=== PATIENT | male | born 1975 | race Caucasian/White ===

== ENCOUNTER 2018-11-12 18:28 | Emergency (ER) | payer MEDICAID, SELFPAY ==
[2018-11-12 18:32] VITALS: BP 148/84; PULSE 66; RESP 16; TEMP 36.7; O2SAT 98
[2018-11-12] MEDS: Tetracaine 0.5% 4 ML BTL OP (18:49)
[2018-11-12] MEDS: Balanced Salt Solution 15 ML BTL OP (18:50)
[2018-11-12] MEDS: Erythromycin Ophth Oint 3.5 GM TUBE OP (18:50)
[2018-11-12] MEDS: Fluorescein STRIPS 100/BOX OP (18:57)
--- NOTE | 2018-11-12 19:30 | ED.GENADUL_ITS ---
Discharge Plan Disposition Patient Disposition: HOME Condition: Stable Discharge Details Chief Complaint: EyeProblem Clinical Impression: Acute foreign body of right eye, Corneal rust ring of right eye Primary Care Provider: Heather Schneider ED Provider: Luis Mauro Home Meds and New Rx's Prescriptions: No Action No Known Home Meds RF: 0 Discharge Instructions Instructions: Eye Foreign Body (ED) Additional Instructions: Use the provided antibiotic ointment 4 times daily and apply half inch to right eye each time. You should present to [facility] at 9 AM on Thursday for follow-up assessment to the rust ring seen after removal of foreign body Referrals: [facility] [Outside] - 11/15/18 9:00 am Discharge Data Discharge Date/Time-TO BE ENTERED AT DEPARTURE: 11/12/18 20:20 Medical Decision Making Approximately 30 minutes prior to arrival patient was under a car and felt a piece of metal/rest fall into his eye while cleaning up his tools. Patient states that is located on his right medial eye. Visual examination of the eyes shows injection to the medial aspect of the right eye and a single visible metallic foreign body. Tetracaine was instilled into the eye and attempted to remove initially with moistened Q-tip was unable and so utilize 18-gauge needle to remove foreign body. Foreign body was able to be removed and eye was stained with dye and shows uptake around the area and a persistent rust ring otherwise no other findings were noted. Patient was up-to-date on tetanus. Patient placed up on erythromycin ointment. Did speak with Dr. Owens at [facility] where patient is normally seen and he stated that patient could come by the office in 3 days for follow-up reassessment of rust ring and any procedure as needed. After discussion of diagnosis and plan of care patient has no further needs, questions, or concerns and states clear understanding to return to the emergency department for any worsening symptoms. HPI General Mode of arrival: ambulatory . Date/Time Provider Initiated Documentation: 11/12/18 18:40 . Limitations to Documentation: no limitations . Information obtained by: patient and RN notes reviewed . History of Present Illness 43 year old M presents to the emergency department with the chief complaint of Foreign body right eye, described as moderate, with intensity rated at 7. Quality is described as sharp, and is localized to the eyes and right. Patient reports no radiation. Patient started experiencing this minute(s) (30) and it has been constant. No relieving factors improve symptom(s), No exacerbating factors reported . Patient notes no other symptoms.. Patient did receive the following treatments prior to arrival, none Related Data Home Medications Medication Instructions Recorded Confirmed Unknown [No Known Home Meds] 01/19/15 11/12/18 Allergies Allergy/AdvReac Type Severity Reaction Status Date / Time No Known Allergies Allergy Unverified 11/12/18 18:36 General Stated Complaint: EyeProblem BETHANY: 4 Review of Systems Constitutional Denies body ache(s), Denies chills and Denies fever(s) Eyes Reports as per HPI, Denies blind spots, Reports blurry vision, Reports irritation, Denies loss of vision and Reports eye pain Integumentary/Breasts Denies rash Neurologic Denies confusion, Denies loss of vision and Denies sensory deficit Psychiatric Denies confusion [facility] Social History Smoking/Tobacco Use Status: Current every day Exam Const General: cooperative, no acute distress and not ill appearing Orientation: alert, awake and oriented x3 HENMT Mouth: moist mucous membranes Eyes Visual Richards: normal visual richards by confrontation Alignment and Position: alignment normal Periorbital: periorbital findings normal Eyelids: eyelids normal Conjunctivae: conjunctivae normal Sclera: scleral abnormality right scleral injection medial Cornea: corneas abnormal on the right fluorescein used and foreign body metallic and with rust ring present and fluorescein used Pupils: PERRL, normal by confrontation and accommodation normal EOM: EOM intact bilaterally Resp Effort & Inspection: normal respiratory effort, able to speak in complete sentences and no respiratory distress Cardio Rate: regular rate Rhythm: regular rhythm Skin General skin exam: no rashes or lesions noted Neuro General: alert, awake, oriented x3, moves all extremities and no focal motor deficits Sensory Exam: no sensory deficits noted Course Vital Signs Temperature 36.7 C 11/12/18 18:32 Pulse 66 11/12/18 18:32 Respiratory Rate 16 11/12/18 18:32 Blood Pressure 148/84 H 11/12/18 18:32 Pulse Oximetry 98 11/12/18 18:32 Temperature 36.7 C 11/12/18 18:32 Temperature Source Temporal Artery Scan 11/12/18 18:32 Pulse 66 11/12/18 18:32 Respiratory Rate 16 11/12/18 18:32 Respiratory Effort Non-Labored 11/12/18 18:35 Blood Pressure 148/84 H 11/12/18 18:32 Blood Pressure Position Sitting 11/12/18 18:32 Pulse Oximetry 98 11/12/18 18:32 Oxygen Delivery Method Room Air 11/12/18 18:32 Oxygen Flow Rate 0 11/12/18 18:32
== END 2018-11-12 20:20 | disposition home or self-care (01) ==
PROVIDERS: Emergency Provider Nurse Practitioner Family; PCP Nurse Practitioner Family
DX: T15.01XA Foreign body in cornea, right eye, initial encounter (principal); Y99.0 Civilian activity done for income or pay
CPT/HCPCS: 65220

== ENCOUNTER 2019-02-08 02:26 | Emergency (ER) | payer MEDICAID, SELFPAY ==
[2019-02-08 02:27] VITALS: BP 150/75; PULSE 88; RESP 16; TEMP 36.6; O2SAT 97
--- NOTE | 2019-02-08 02:30 | W.ED.GENAD ---
Discharge Plan Disposition Patient Disposition: HOME Condition: Stable Discharge Details Chief Complaint: EyeProblem Clinical Impression: Corneal abrasion Primary Care Provider: Heather Schneider ED Provider: Bertrand Ayala Home Meds and New Rx's Prescriptions: No Action No Known Home Meds RF: 0 Discharge Instructions Instructions: Corneal Abrasion (ED) Additional Instructions: you can take 1000mg tylenol and 600mg ibuprofen every 6 hours for pain as needed if you are still in pain in 2-3 days follow up with [facility], call them at [phone] if you feel your pain is significantly worsening or you have vision changes return to the emergency department use the ointment in the left eye 3 times a day for 5 days or until the tube is gone Medical Decision Making 43 yo male states he was working under a car yesterday afternoon and put safety goggles on and felt something go in his left eye. Has had pain since so came here. Denies vision changes or deep eye pain, perrl and eomi without pain on movement, no periorbital swelling. Has injected left conjuncitva, no FB on eyelid eversion and pain resolved with tetracaine. no findings to suggest globe rupture, at the 12 olock position on the conjunctiva there is a 1mm corneal abrasion. Will start abx ointment and advised if not better in a few days to f/u with optometry, return precautions given. IOP 10 so doubt glaucoma Differential Diagnosis corneal abrasion, conjunctivitis, FB HPI General Mode of arrival: ambulatory. Date/Time Provider Initiated Documentation: 02/08/19 02:30. Limitations to Documentation: no limitations. Information obtained by: patient. History of Present Illness 43 year old M presents to the emergency department with the chief complaint of left eye pain, described as moderate, and is localized to the eyes. Patient reports no radiation. Patient started experiencing this day(s) (1) and it has been constant. No relieving factors improve symptom(s), No exacerbating factors reported . Patient notes no other symptoms.. Patient did receive the following treatments prior to arrival, none Related Data Home Medications Medication Instructions Recorded Confirmed Unknown [No Known Home Meds] 01/19/15 02/08/19 Allergies Allergy/AdvReac Type Severity Reaction Status Date / Time No Known Allergies Allergy Unverified 02/08/19 02:30 General Stated Complaint: EyeProblem BETHANY: 4 Review of Systems Review of Systems All systems reviewed & are unremarkable except as noted in HPI and below Constitutional Denies chills and Denies fever(s) Cardiovascular Denies chest pain and Denies dyspnea Respiratory Denies cough and Denies dyspnea Gastrointestinal Denies abdominal pain, Denies nausea and Denies vomiting Integumentary/Breasts Denies rash PFSH Medical History Cyst (Acute) Social History Smoking/Tobacco Use Status: Current every day Tobacco Type: cigarettes Alcohol Intake: never Drug use: Never Substance use type: does not use Do you feel safe at home: Yes Do you feel safe in your relationship?: Yes Exam Const General: no acute distress Orientation: alert HENMT Head: normal to inspection Ears: external ears normal General nose exam: external nose normal Mouth: moist mucous membranes Eyes Pupils: PERRL Neck Neck: normal visual inspection Resp Effort & Inspection: normal respiratory effort and able to speak in complete sentences Cardio Rate: regular rate Skin General skin exam: no rashes or lesions noted Neuro General: alert and oriented x3 Extrem General: normal to inspection Psych Mental Status: mental status grossly normal Course Vital Signs Temperature 36.6 C 02/08/19 02:27 Pulse 88 02/08/19 02:27 Respiratory Rate 16 02/08/19 02:27 Blood Pressure 150/75 H 02/08/19 02:27 Pulse Oximetry 97 02/08/19 02:27 Temperature 36.6 C 02/08/19 02:27 Temperature Source Skin 02/08/19 02:27 Pulse 88 02/08/19 02:27 Respiratory Rate 16 02/08/19 02:27 Blood Pressure 150/75 H 02/08/19 02:27 Blood Pressure Position Sitting 02/08/19 02:27 Pulse Oximetry 97 02/08/19 02:27 Oxygen Delivery Method Room Air 02/08/19 02:27 Oxygen Flow Rate 0 02/08/19 02:27 Pain Level 6 02/08/19 02:27
--- NOTE | 2019-02-08 02:34 | ED.GENADUL_ITS ---
Discharge Plan Disposition Patient Disposition: HOME Condition: Stable Discharge Details Chief Complaint: EyeProblem Clinical Impression: Corneal abrasion Primary Care Provider: Heather Schneider ED Provider: Bertrand Ayala Home Meds and New Rx's Prescriptions: No Action No Known Home Meds RF: 0 Discharge Instructions Instructions: Corneal Abrasion (ED) Additional Instructions: you can take 1000mg tylenol and 600mg ibuprofen every 6 hours for pain as needed if you are still in pain in 2-3 days follow up with [facility], call them at [phone] if you feel your pain is significantly worsening or you have vision changes return to the emergency department use the ointment in the left eye 3 times a day for 5 days or until the tube is gone Medical Decision Making 43 yo male states he was working under a car yesterday afternoon and put safety goggles on and felt something go in his left eye. Has had pain since so came here. Denies vision changes or deep eye pain, perrl and eomi without pain on movement, no periorbital swelling. Has injected left conjuncitva, no FB on eyelid eversion and pain resolved with tetracaine. no findings to suggest globe rupture, at the 12 olock position on the conjunctiva there is a 1mm corneal abrasion. Will start abx ointment and advised if not better in a few days to f/u with optometry, return precautions given. IOP 10 so doubt glaucoma Differential Diagnosis corneal abrasion, conjunctivitis, FB HPI General Mode of arrival: ambulatory . Date/Time Provider Initiated Documentation: 02/08/19 02:30 . Limitations to Documentation: no limitations . Information obtained by: patient . History of Present Illness 43 year old M presents to the emergency department with the chief complaint of left eye pain, described as moderate, and is localized to the eyes. Patient reports no radiation. Patient started experiencing this day(s) (1) and it has been constant. No relieving factors improve symptom(s), No exacerbating factors reported . Patient notes no other symptoms.. Patient did receive the following treatments prior to arrival, none Related Data Home Medications Medication Instructions Recorded Confirmed Unknown [No Known Home Meds] 01/19/15 02/08/19 Allergies Allergy/AdvReac Type Severity Reaction Status Date / Time No Known Allergies Allergy Unverified 02/08/19 02:30 General Stated Complaint: EyeProblem BETHANY: 4 Review of Systems Review of Systems All systems reviewed & are unremarkable except as noted in HPI and below Constitutional Denies chills and Denies fever(s) Cardiovascular Denies chest pain and Denies dyspnea Respiratory Denies cough and Denies dyspnea Gastrointestinal Denies abdominal pain, Denies nausea and Denies vomiting Integumentary/Breasts Denies rash PFSH Medical History Cyst (Acute) Social History Smoking/Tobacco Use Status: Current every day Tobacco Type: cigarettes Alcohol Intake: never Drug use: Never Substance use type: does not use Do you feel safe at home: Yes Do you feel safe in your relationship?: Yes Exam Const General: no acute distress Orientation: alert HENMT Head: normal to inspection Ears: external ears normal General nose exam: external nose normal Mouth: moist mucous membranes Eyes Pupils: PERRL Neck Neck: normal visual inspection Resp Effort & Inspection: normal respiratory effort and able to speak in complete sentences Cardio Rate: regular rate Skin General skin exam: no rashes or lesions noted Neuro General: alert and oriented x3 Extrem General: normal to inspection Psych Mental Status: mental status grossly normal Course Vital Signs Temperature 36.6 C 02/08/19 02:27 Pulse 88 02/08/19 02:27 Respiratory Rate 16 02/08/19 02:27 Blood Pressure 150/75 H 02/08/19 02:27 Pulse Oximetry 97 02/08/19 02:27 Temperature 36.6 C 02/08/19 02:27 Temperature Source Skin 02/08/19 02:27 Pulse 88 02/08/19 02:27 Respiratory Rate 16 02/08/19 02:27 Blood Pressure 150/75 H 02/08/19 02:27 Blood Pressure Position Sitting 02/08/19 02:27 Pulse Oximetry 97 02/08/19 02:27 Oxygen Delivery Method Room Air 02/08/19 02:27 Oxygen Flow Rate 0 02/08/19 02:27 Pain Level 6 02/08/19 02:27
[2019-02-08] MEDS: Erythromycin Ophth Oint 3.5 GM TUBE OP (02:42)
[2019-02-08] MEDS: Balanced Salt Solution 15 ML BTL (02:43)
[2019-02-08] MEDS: Tetracaine 0.5% 4 ML BTL (02:43)
[2019-02-08] MEDS: Fluorescein STRIPS 100/BOX 1 MG (02:44)
== END 2019-02-08 02:45 | disposition home or self-care (01) ==
LOC: ER 02:47
PROVIDERS: Emergency Provider Emergency Medicine; PCP Nurse Practitioner Family
DX: S05.02XA Injury of conjunctiva and corneal abrasion without foreign body, left eye, initial encounter (principal); X58.XXXA Exposure to other specified factors, initial encounter
CPT/HCPCS: 99283

== ENCOUNTER 2019-12-01 16:55 | Outpatient (REF) | payer MEDICAID, SELFPAY ==
[2019-12-01 21:50] LABS: Abs Immature Grans 0.02 k/cumm (0.0-0.09); Absolute Basophil Count 0.06 k/cumm (0.0-0.2); Absolute Eosinophil Count 0.25 k/cumm (0.0-0.7); Absolute Lymphocyte Count 3.05 k/cumm (1.2-3.4); Absolute Monocyte Count 0.74 k/cumm (0.11-0.7); Absolute Neutrophil Count 5.77 k/cumm (1.2-6.7); Basophils % 0.6; Eosinophils % 2.5; HCT 41.3 % (40.0-50.0); HGB 13.8 g/dL (13.5-17.5); Immature Grans % 0.2 %; Lymphocytes % 30.8; Mean Corp. HGB Concentration 33.4 g/dL (32.0-36.0); Mean Corpuscular Hemoglobin 31.7 pg (27.0-33.0); Mean Corpuscular Volume 94.7 fL (80-95); Mean Platelet Volume 10.2 fL (8.0-11.0); Monocytes % 7.5; Neutrophils % 58.4; Platelet Count 310 x1000/uL (130-400); RBC 4.36 m/cumm (4.50-6.00); RBC Distribution Width 13.8 % (11.8-14.1); White Blood Cell Count 9.89 k/cumm (4.4-10.8)
[2019-12-01 22:13] LABS: C-Reactive Protein 0.54 mg/dL (0.0-0.3); TSH (W/Ref FT4) 1.17 uIU/mL (0.36-3.74)
[2019-12-01 22:39] LABS: ESR 16 mm/hr (0-15)
[2019-12-05 11:13] LABS: Cyclic Citrullinated Peptide <2.5 U/mL (<5.0)
[2019-12-05 15:01] LABS: ANA Interpretation Negative (Negative)
== END 2019-12-01 17:15 ==
LOC: NCHCN 16:55
PROVIDERS: PCP Nurse Practitioner Family; Visit Provider Nurse Practitioner Family
DX: M25.50 Pain in unspecified joint (principal)
CPT/HCPCS: 85652; 86200; 84443; 85025; 86038; 86140

== ENCOUNTER 2022-01-08 14:51 | Outpatient (CLI) | payer MEDICAID, SELFPAY ==
--- NOTE | 2022-01-08 15:53 | DI.RAD_ITS ---
Exam(s) XR CHEST 2V PA LATERAL EXAM: XR CHEST 2V PA LATERAL CLINICAL HISTORY: DYSPNEA R06.00 TECHNIQUE: 2D digital imaging was performed of the chest. Images were obtained. PA and lateral v iews were obtained. COMPARISON: CR CHEST 2 VIEWS PA,LAT from 03/09/2013 FINDINGS: MEDIASTINUM: Normal. HEART: Normal. PULMONARY VASCULATURE: Normal. LUNGS: There is a pleural-based 5.3 x 3.8 cm mass in the right upper lobe. There is a 2nd mass measu ring 3.1 x 1.3 cm along the right lateral chest wall. The right paratracheal space is enlarged sugge sting adenopathy or central mass. Linear atelectasis or scarring is seen in the right lower lobe. T he left lung is clear. PLEURAL SPACE: No pleural effusion or pneumothorax. BONE:Within normal limits for the patient's age. OTHER FINDINGS:Normal. IMPRESSION: Pulmonary and mediastinal masses suspicious for neoplasm and adenopathy. A CT scan of the chest with contrast is recommended for further evaluation. DATA REPOSITORY: RADIATION DOSE DELIVERED:
== END 2022-01-08 15:11 ==
PROVIDERS: PCP Nurse Practitioner Family; Visit Provider Physician Assistant Medical
DX: R06.00 Dyspnea, unspecified (principal); R91.8 Other nonspecific abnormal finding of lung field
CPT/HCPCS: 71046

== ENCOUNTER 2022-01-08 16:08 | Outpatient (CLI) | payer MEDICAID, SELFPAY ==
[2022-01-08 16:45] LABS: D-Dimer 840 ng/mlFEU (<500)
== END 2022-01-08 16:09 | disposition home or self-care (01) ==
LOC: LBO 16:09
PROVIDERS: PCP Nurse Practitioner Family; Visit Provider Physician Assistant Medical
DX: R06.00 Dyspnea, unspecified (principal)
CPT/HCPCS: 85379

== ENCOUNTER 2022-01-08 22:43 | Observation (INO) | payer MEDICAID, SELFPAY ==
--- NOTE | 2022-01-08 22:45 | RT.EKG_ITS ---
APPROVED REPORT Exam: Resting ECG Reason for Exam: short of breath Patient Location: E HR:83 bpm ECG Measurements Heart Rate 83 AXIS NM 166 P 64 QRSd 93 QRS 31 QT 372 T 55 QTc 438 Conclusion Sinus rhythm...normal P axis, V-rate 60- 99 I have reviewed and interpreted ECG and agree with software generated interpretation. Normal Electrocardiogram
[2022-01-08 22:50] VITALS: BP 142/89; PULSE 89; RESP 18; TEMP 36.3; O2SAT 98
--- NOTE | 2022-01-08 23:00 | DI.CT_ITS ---
Exam(s) CT CHEST PE CTA EXAM: CT CHEST PE CTA CLINICAL HISTORY: CP, covid last month, Elevated dimer. TECHNIQUE: Imaging Protocol: Axial CT angiography was performed with multi-slice acquisition and mu lti-planar and/or 3D reconstructions. CONTRAST MATERIAL: Intravenous: Omnipaque 350 Contrast volume:100 mL COMPARISON: CR XR CHEST 2V PA LATERAL from 01/08/2022 FINDINGS: Tracheobronchial tree: Patent where visualized. Pulmonary parenchyma: There is a peripheral right upper lobe mass measuring 7.9 x 5.1 x 5.1 cm. The mass abuts the chest wall and may extend into the soft tissues. There are additional pleural-based n odules. The largest is adjacent to the right 5th rib and measures 3.4 x 1.2 cm. There also pleural nodules associated with the right major fissure measuring up to 1.6 cm in diameter. Ground-glass opa cities are present adjacent to the right upper lobe mass. There also mild dependent atelectatic maier ges in the lung bases. Scarring, atelectasis or pneumonia is seen in the right lung base. Pulmonary Arteries: The peripheral pulmonary arteries are less well opacified limiting evaluation for pulmonary embolic disease in this region. No central pulmonary embolus is seen. Mediastinum and Emilie: There is mediastinal and hilar adenopathy present. The largest delores masses in the right paratracheal region and measures 3.6 transverse by 5.4 AP by 5.6 craniocaudad. There is c ompression of the superior vena cava by the mediastinal adenopathy. The esophagus is unremarkable. Visualized thyroid gland: Unremarkable. Pleura: Please see above. No effusion. Heart: The heart is not dilated. No coronary artery calcifications are seen. No pericardial effusion. Aorta: Thoracic aorta non-dilated. No evidence of dissection. Tubes, Catheters, and Lines: Soft tissues: Unremarkable. Bones: Within normal limits for the patient's age.There is thinning of the cortex/erosion on the inne r surface of the right 2nd rib adjacent to the mass. IMPRESSION: 1. No evidence of pulmonary embolism, thoracic aortic dissection or aneurysm. 2. Right upper lobe mass with findings suggestive of involvement of the adjacent rib and chest wall. The findings are suggestive of advanced stage lung carcinoma. 3. Pleural metastatic disease and mediastinal adenopathy. 4. Compression of the superior vena cava by the mediastinal adenopathy. RADIATION DOSE DELIVERED: 373.65mGy.cm Total DLP DATA REPOSITORY: All CT scans at this facility are submitted to the National Radiology Data Registry (NRDR) Dose Index Registry (DIR) with the [employer] [place] [employer] ([employer]). RADIATION OPTIMIZATION: All CT scans at this facility use at least one of these dose optimization te chniques: automated exposure control; mA and/or kV adjustment per patient size (includes targeted exa ms where dose is matched to clinical indication); or iterative reconstruction.
--- NOTE | 2022-01-08 23:02 | ED.GENADUL_ITS ---
Discharge Plan Disposition Patient Disposition: [facility] INPATIENT Condition: Fair Discharge Details Clinical Impression: Mass of upper lobe of right lung, Mediastinal lymphadenopathy, Occlusion of right subclavian vein Primary Care Provider: Heather Schneider ED Provider: Ang House Home Meds and New Rx's Prescriptions: No Action No Known Home Meds 0RF Medical Decision Making <PRATEEK Mejía - Last Filed: 01/08/22 23:30> This is a 46-year-old gentleman, not vaccinated for COVID, had Covid in October, presenting from the urgent care for concern of PE. She went to the urgent care today for right-sided chest pain that been present for the past couple of week, was noted to have elevated D-dimer. Clinically he appears well, nontoxic, pulse in the 80s, afebrile, O2 sat 98% on room air. There is no pain or swelling in his legs. Will obtain routine laboratory values, given the duration of his symptoms I will obtain a single troponin, once I assess his renal function, assuming this is normal, will obtain CTA of his chest. Patient is comfortable with this plan and has no additional questions or concerns Medical Records Medical records reviewed: Yes I reviewed the patient's medical records. ECG Data Attestation: I personally reviewed and interpreted this ECG (s) as follows: Interpretation: Please see official report by Dr. House. Sinus rhythm, ventricular rate of 83. No STEMI <Ang House MD - Last Filed: 01/09/22 03:13> This is a 46-year-old gentleman, not vaccinated for COVID, had Covid in October, presenting from the urgent care for concern of PE. She went to urgent care today for right-sided chest pain that been present for the past couple of week, was noted to have elevated D-dimer. Clinically he appears well, nontoxic, pulse in the 80s, afebrile, O2 sat 98% on room air. There is no pain or swelling in his legs. Will obtain routine laboratory values, given the duration of his symptoms I will obtain a single troponin, once I assess his renal function, assuming this is normal, will obtain CTA of his chest. Patient is comfortable with this plan and has no additional questions or concerns 01:20 - Patient signed out to me pending CTA of the chest. He had presented to urgent care earlier today because of right upper chest pain. He was referred to the ED because of elevated D-dimer. Patient's other laboratory studies here are unremarkable other than a mild anemia. CTA is negative for PE or dissection. Unfortunately, there is evidence of advanced/metastatic lung cancer with erosion into the chest wall, significant adenopathy and occlusion of the right subclavian vein with significant collateralization in the chest wall. There is also compression of the SVC but no occlusion at this time. I sat down and had a discussion with the patient. He reports having pain for couple of months. He had COVID in October but did not have a chest x-ray. He tested positive and isolated at home. He actually had chest x-ray done from urgent care today. That report is present in the record now but likely would not have been acted on until tomorrow by the urgent care practitioner. 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 He is having more and more difficulty using the right upper extremity because of pain. He is not endorsing shortness of breath. I will have the images sent to [facility] and will discuss with heme-onc kvng. 3 AM - I spoke with heme/onc at [facility]. Really need tissue diagnosis to help guide management. Given vascular involvement this should be done as soon as possible. Also recommends staging abd/pelvic CT and LDH. These were ordered. Discussed with hospitalist obs admit to help expedite work up/biopsy. Might be possible for surgery to get biopsy based on chest wall involvement/lymph node involvement. Dr. Wagner might be able to bronch for biopsy. Can also consider down and back trip to [facility] interventional radiology as last resort. Patient is agreeable to plan and understands why procedure is necessary and should be done expeditiously. Patient accepted to hospitalist service. Imaging Data Radiologic Study: Imaging: CT Scan Radiologist's impression: IMPRESSION: 1. Negative for pulmonary embolism. 2. Negative for aortic dissection. 3. Right upper lobe mass with chest wall invasion. Advanced stage lung cancer suspected. Biopsy and PET-CT are advised. 4. Right pleural metastases. 5. Mediastinal lymphadenopathy. 6. Short segment occlusion the right subclavian vein. This is likely related to compression between the right clavicle and 1st rib, unrelated to the adjacent tumor. 7. Compression of the superior vena cava by mediastinal lymphadenopathy, without occlusion. Thank you for allowing us to participate in the care of your patient. Dictated and Authenticated by: Bertrand Chaudhry MD Lab Data Lab results reviewed: Yes I reviewed the patient's lab results. ECG Data Prior ECG tracings: not available for review HPI <PRATEEK Mejía - Last Filed: 01/08/22 23:30> General Mode of arrival: ambulatory . Date/Time Provider Initiated Documentation: 01/08/22 22:46 . Limitations to Documentation: no limitations . Information obtained by: patient . HPI Narrative: This is a 46-year-old gentleman, current smoker, not vaccinated for COVID, reports having had Covid back in October, presenting to the ER today from urgent care for evaluation of right-sided chest pain, shortness of breath, elevated D-dimer concern for PE. Patient states that he has had right-sided chest aching worse with movement, taking a deep breath, that occasionally radiates to his back, which is not present for the past couple of weeks. He reports mild, dry, baseline cough. He denies recent illness or trauma, headache, fever, productive cough, wheezing, abdominal pain, nausea, vomiting, history of DVT or PE, pain or swelling in his calf Related Data Home Medications Medication Instructions Recorded Confirmed Unknown [No Known Home Meds] 01/19/15 02/08/19 Allergies Allergy/AdvReac Type Severity Reaction Status Date / Time No Known Allergies Allergy Unverified 02/08/19 02:30 General Stated Complaint: GenMedical BETHANY: 3 Review of Systems <PRATEEK Mejía - Last Filed: 01/08/22 23:30> Constitutional Constitutional: Denies fatigue, Denies fever(s) and Denies weakness ENT Ears, Nose, Mouth, and Throat: Denies neck pain Cardiovascular Cardiovascular: Reports chest pain and Reports dyspnea Respiratory Respiratory: Reports cough and Reports dyspnea Gastrointestinal Gastrointestinal: Denies abdominal pain, Denies nausea and Denies vomiting Musculoskeletal Musculoskeletal: Reports back pain, Denies neck pain, Denies numbness and Denies tingling Integumentary/Breasts Skin/Breast: Denies rash Neurologic Neurologic: Denies numbness, Denies tingling and Denies weakness Endocrine Endocrine: Denies fatigue Hematologic/Lymphatic Hematologic/Lymphatic: Denies easy bleeding and Denies easy bruising PFS <PRATEEK Mejía - Last Filed: 01/08/22 23:30> All Active Problems (Updated 01/09/22 @ 03:12 by Ang House MD) Mass of upper lobe of right lung (Acute) Mediastinal lymphadenopathy (Acute) Occlusion of right subclavian vein (Acute) Medical History (Updated 01/09/22 @ 03:12 by Ang House MD) Cyst removed in throat as child Social History Smoking/Tobacco Use Status: Current every day Tobacco Type: cigarettes Smoking risk assessment performed?: Yes Alcohol Intake: never Drug use: Never Substance use type: does not use Do you feel safe at home: Yes Do you feel safe in your relationship?: Yes Exam <PRATEEK Mejía - Last Filed: 01/08/22 23:30> Const General: cooperative, healthy appearing, comfortable and no acute distress Orientation: alert, awake and oriented x3 HENMT Head: normal to inspection, normocephalic and atraumatic Eyes General: appearance normal, both eyes and all related structures Conjunctivae: conjunctivae normal Neck Neck: normal visual inspection, trachea midline and supple Resp Effort & Inspection: normal respiratory effort and able to speak in complete sentences Auscultation: clear to auscultation bilaterally Cardio Rate: regular rate Rhythm: regular rhythm GI Palpation: soft and nontender Back/Spine/Pelvis Back: No back tenderness Skin General skin exam: no rashes or lesions noted Neuro General: patient alert, patient awake, moves all extremities and no focal motor deficits Cognition: normal cognition Speech: speech normal Gait: normal gait Sensory Exam: no sensory deficits noted Extrem General: normal to inspection, full ROM and capillary refill normal Psych Appearance: grossly normal Mental Status: mental status grossly normal Course <PRATEEK Mejía - Last Filed: 01/08/22 23:30> Vital Signs Vital signs: Vital Signs Temperature 36.3 C L 01/08/22 22:50 Pulse 89 01/08/22 22:50 Respiratory Rate 18 01/08/22 22:50 Blood Pressure 142/89 H 01/08/22 22:50 Pulse Oximetry 98 02/16/22 22:50 Temperature 36.3 C L 01/08/22 22:50 Temperature Source Tympanic 01/08/22 22:50 Pulse 89 01/08/22 22:50 Respiratory Rate 18 01/08/22 22:50 Respiratory Effort 01/08/22 22:55 Respiratory Depth Normal 01/08/22 22:55 Respiratory Pattern Normal 01/08/22 22:55 Blood Pressure 142/89 H 01/08/22 22:50 Blood Pressure Position Supine 01/08/22 22:50 Pulse Oximetry 98 01/08/22 22:50 Oxygen Delivery Method Room Air 01/08/22 22:50 Oxygen Flow Rate 0 01/08/22 22:50 Pain Level 0 01/08/22 22:50 Sign Out <PRATEEK Mejía - Last Filed: 01/08/22 23:30> Sign Out Data: Sign Out Comment: Patient is not vaccinated for COVID. Current smoker. He had COVID in October, reports right-sided chest pain-pressure over the past 2 weeks constantly. Elevated D-dimer at urgent care today. Sent to the ER for PE rule out Last updated by Nikita Moreau PA at 01/08/22 23:43
[2022-01-08 23:15] VITALS: PULSE 89; RESP 12; O2SAT 97
[2022-01-08 23:16] VITALS: BP 128/81; PULSE 92; PULSE 97; RESP 13; O2SAT 98
[2022-01-08 23:20] VITALS: PULSE 89; RESP 14; O2SAT 97
[2022-01-08 23:23] LABS: Abs Immature Grans 0.03 10^3/uL (0.0-0.06); Absolute Basophil Count 0.06 10^3/uL (0.0-0.2); Absolute Eosinophil Count 0.31 10^3/uL (0.0-0.7); Absolute Lymphocyte Count 2.87 10^3/uL (1.2-3.4); Absolute Neutrophil Count 6.09 10^3/uL (1.2-6.7); Basophils % 0.6; HCT 37.8 % (40.0-50.0); Immature Grans % 0.3; Lymphocytes % 27.7; MCH 30.5 pg (27.0-33.0); MCHC 31.7 % (32.0-36.0); MCV 95.9 fL (80-95); MPV 8.5 fL (8.0-11.0); Monocytes % 9.7; Neutrophils % 58.7; Nucleated RBC 0 %; Platelet Count 401 10^3/uL (130-400); RBC 3.94 10^6/uL (4.36-5.78); RDW 13.2 % (11.8-14.1); RDW-SD 47.2 fL; WBC 10.36 10^3/uL (4.4-10.8)
[2022-01-08 23:30] VITALS: PULSE 86; RESP 13; O2SAT 97
[2022-01-08 23:31] VITALS: BP 135/82; PULSE 83; PULSE 84; RESP 18; O2SAT 97
[2022-01-08 23:44] LABS: ALT 22 U/L (16-63); AST 17 U/L (15-37); Albumin 3.4 g/dL (3.4-5.0); Alkaline Phosphatase 125 U/L (46-116); Anion Gap 7.5 mmol/L (3-11); BUN 16 mg/dL (7-18); Bilirubin, Total 0.2 mg/dL (0.2-1.0); CO2 28.5 mmol/L (21.0-32.0); CREATININE 1.1 mg/dL (0.70-1.30); Calcium 9.1 mg/dL (8.5-10.1); Chloride 104 mmol/L (98-107); Glucose 104 mg/dL (74-106); Potassium 3.8 mmol/L (3.5-5.1); Sodium 140 mmol/L (136-145); Total Protein 8.2 g/dL (6.4-8.2); Troponin I < 50 ng/L (<or=60)
--- NOTE | 2022-01-09 | DI.US_ITS ---
Exam(s) US CHEST EXAM: US CHEST CLINICAL HISTORY: lung mass eroding into chest TECHNIQUE: Ultrasound right chest was performed performed using standard protocol. COMPARISON: CT CT CHEST PE CTA from 01/09/2022 FINDINGS: There is a hypoechoic mass seen in the right upper lobe measuring 5.8 cm[address] As on the CT scan, the mas s is inferior to the right axillary vessel. Dr. Castillo, from the department of surgery, was presen t during the examination. IMPRESSION: 5.8 cm right upper lobe pulmonary mass. DATA REPOSITORY:
[2022-01-09] MEDS: Omnipaque 350 MG/ML 100 ML BTL IV ×2 (00:18→03:13)
--- NOTE | 2022-01-09 00:51 | DI.VRAD_ITS ---
PROCEDURE INFORMATION: Exam: CTA Chest With Contrast Exam date and time: 01/08/2022 11:16 PM Age: 46 years old Clinical indication: Other: Cp, covid last month, elevated d-dimer TECHNIQUE: Imaging protocol: Computed tomographic angiography of the chest with contrast. 3D rendering (Not supervised by radiologist): MIP and/or 3D reconstructed images were created by the technologist. Radiation optimization: All CT scans at this facility use at least one of these dose optimization techniques: automated exposure control; mA and/or kV adjustment per patient size (includes targeted exams where dose is matched to clinical indication); or iterative reconstruction. Contrast material: OMNIPAQUE 350; Contrast volume: 100 ml; Contrast route: INTRAVENOUS (IV); COMPARISON: CR XR CHEST 2V PA LATERAL 01/08/2022 3:55 PM FINDINGS: Pulmonary arteries: Normal. No pulmonary emboli. Aorta: Unremarkable. No aortic aneurysm. No aortic dissection. Thyroid: Normal thyroid. Lungs: Right upper lobe mass measures 7.9 x 5.1 x 5.1 cm. Extension of the mass into the chest wall between the 1st and 2nd intercostal spaces is observed. Mild dependent ground-glass opacity noted in the lung bases, atelectasis and/or edema. Plate-like atelectasis and scarring is noted in the right lower lobe. Mild ground-glass opacity is present around the right upper lobe mass. There is no significant endobronchial mucus. No definite endobronchial mass observed. Pleural spaces: Focal sites of pleural thickening are noted in the right. A pleural based mass adjacent to the right 5th rib measures 3.4 x 1.2 cm. Additional pleural nodules are present arising from the right major fissure, up to 1.6 cm diameter. No significant pleural effusion. No pneumothorax. Negative for left-sided pleural masses. Heart: Negative for pericardial effusion. Negative for cardiomegaly. No significant coronary artery calcification. Lymph nodes: Enlarged mediastinal lymph nodes are noted. A right paratracheal mass measures 5.6 x 3.5 cm. Bilateral hilar and subcarinal lymph nodes are enlarged. Several enlarged anterior mediastinal lymph nodes are observed. A left internal mammary lymph node is enlarged, 1.5 cm, between the left 2nd and 3rd ribs anteriorly. No significant axillary lymphadenopathy. Adrenal glands: Normal adrenal glands. Bones/joints: Negative for compression fracture. No specific rib destruction or fracture is observed. Loss of cortex is observed in the right 2nd rib adjacent to the large mass. Sternum is intact. Soft tissues: Contrast injection in the right arm extends through multiple chest wall collaterals. Short-segment occlusion of the right subclavian vein is observed on coronal MIP image 37 series 5, position between the right clavicle and the 1st rib. The superior vena cava is collapsed, but not occluded. IMPRESSION: 1. Negative for pulmonary embolism. 2. Negative for aortic dissection. 3. Right upper lobe mass with chest wall invasion. Advanced stage lung cancer suspected. Biopsy and PET-CT are advised. 4. Right pleural metastases. 5. Mediastinal lymphadenopathy. 6. Short segment occlusion the right subclavian vein. This is likely related to compression between the right clavicle and 1st rib, unrelated to the adjacent tumor. 7. Compression of the superior vena cava by mediastinal lymphadenopathy, without occlusion. Dictated and Authenticated by: Bertrand Chaudhry MD. Ordering:NATY Shelton MD
--- NOTE | 2022-01-09 02:15 | DI.CT_ITS ---
Exam(s) CT ABDOMEN PELVIS W EXAM: CT ABDOMEN PELVIS W CLINICAL HISTORY: staging TECHNIQUE: Imaging Protocol: Axial computed tomography images with coronal and sagittal reformatted images were created and reviewed CONTRAST MATERIAL: Intravenous: Omnipaque 350 Contrast volume:100 mL Oral: No COMPARISON: CT CT CHEST PE CTA from 01/09/2022 FINDINGS: ABDOMEN: Liver: Normal density. No measurable mass. Portal, Superior Mesenteric, and Splenic Veins: Unremarkable. Gallbladder and Biliary Tract: No radiodense calculus or dilation. Pancreas: Normal density, no abnormal calcifications or inflammatory process. Spleen: Normal. Adrenals: No masses seen. Kidneys: Normal size, contour and axis. No radiodense stones or obstructive uropathy. No masses seen. Abdominal Aorta: Abdominal portion non-dilated. Atherosclerosis. Bowel: No obstruction or bowel wall thickening. No evidence of appendicitis. Peritoneal Cavity: No ascites, collection or mesenteric inflammatory response. No free air. Lymph Nodes: Within normal limits. Bones: Within normal limits for the patient's age. Soft Tissues: Unremarkable. PELVIS: Bladder: There is diffuse thickening of the wall of the urinary bladder. This may be due to underdis tention. Cystitis cannot be excluded. Reproductive Organs: Unremarkable as visualized. Lymph Nodes: Within normal limits. Bones: Within normal limits for the patient's age. IMPRESSION: No evidence of abdominal or pelvic mass or metastatic disease. RADIATION DOSE DELIVERED: 1,131.07mGy.cm Total DLP DATA REPOSITORY: All CT scans at this facility are submitted to the National Radiology Data Registry (NRDR) Dose Index Registry (DIR) with the [employer] (A[employer]). RADIATION OPTIMIZATION: All CT scans at this facility use at least one of these dose optimization te chniques: automated exposure control; mA and/or kV adjustment per patient size (includes targeted exa ms where dose is matched to clinical indication); or iterative reconstruction.
[2022-01-09 03:04] VITALS: BP 131/84; PULSE 81; RESP 16; O2SAT 100
[2022-01-09 03:12] LABS: Lab Add On Test DONE
[2022-01-09 03:26] LABS: LDH 235 U/L (85-227)
[2022-01-09 03:27] VITALS: BP 149/83; PULSE 78; RESP 17; TEMP 36.8; O2SAT 97
--- NOTE | 2022-01-09 03:43 | DI.VRAD_ITS ---
PROCEDURE INFORMATION: Exam: CT Abdomen And Pelvis With Contrast; Liver Exam date and time: 01/09/2022 2:20 AM Age: 46 years old Clinical indication: Other: Staging TECHNIQUE: Imaging protocol: Computed tomography of the abdomen and pelvis with intravenous contrast. Exam focused on the liver. Radiation optimization: All CT scans at this facility use at least one of these dose optimization techniques: automated exposure control; mA and/or kV adjustment per patient size (includes targeted exams where dose is matched to clinical indication); or iterative reconstruction. Contrast material: OMNIPAQUE 350; Contrast volume: 100 ml; Contrast route: INTRAVENOUS (IV); COMPARISON: CT CHEST PE CTA 01/09/2022 12:08 AM FINDINGS: Liver: Negative for suspicious mass. Homogeneous enhancement at arterial and venous phases. Gallbladder and bile ducts: Normal. No calcified stones. No ductal dilation. Pancreas: Normal. No ductal dilation. Spleen: Normal. No splenomegaly. Adrenals: Normal. No mass. Kidneys and ureters: Negative for hydronephrosis. Negative for renal mass. Contrast from the earlier exam is present in the collecting systems. Ureters are not dilated. Stomach and bowel: Stomach is collapsed and not well evaluated. Nondilated small bowel. Terminal ileum is unremarkable. Negative for inflammatory changes around the colon. Intraperitoneal space: Unremarkable. No free air. No significant fluid collection. Lymph nodes: Negative for suspicious peritoneal or inguinal lymphadenopathy. Vasculature: Negative for aneurysm. Mild vascular calcifications noted. Bladder: Collapsed urinary bladder, unremarkable. Reproductive: Unremarkable. Bones/joints: Negative for compression fracture. Moderate degenerative changes noted at L5-S1, with neural foraminal narrowing. Additional disc bulges noted L3-L4 and L4-L5. No destructive or erosive bony lesions observed. Soft tissues: Unremarkable. IMPRESSION: No evidence of metastatic disease inferior to the diaphragm. Dictated and Authenticated by: Bertrand Chaudhry MD. Ordering:AUGUSTINA Fry MD
[2022-01-09 03:49] LABS: COVID-19 PCR Negative (Negative)
[2022-01-09] MEDS: Acetaminophen 325 MG TAB PO ×2 (03:51→19:32)
--- NOTE | 2022-01-09 04:14 | W.PM.HP.N ---
Date of service: 01/09/22 Time of Service: 04:14 Assessment and Plan Assessment and plan (1) Mass of upper lobe of right lung: Status: Acute Assessment and plan: Lung mass eroding into the chest wall. Related lymphadenopathy compressing the SVC w/o SVC syndrome being evident. Tissue needed for diagnoses; most likely cancer. Bronchoscopy vs external approach by surgery given presence of the tumor eroding into the chest wall. Other option is IR at [facility] [place]. No pulmonary/environmental protection forester available today. Pain control with Toradol prn, oxycodone prn. (2) Occlusion of right subclavian vein: Status: Acute Assessment and plan: CT reading states the occlusion is a short segment occlusion the right subclavian vein and is likely related to compression between the right clavicle and 1st rib, unrelated to the adjacent tumor. He does have RUE discomfort but no swelling. (3) Tobacco abuse disorder: Status: Acute Assessment and plan: Nicoderm patch 21 mg prn. (4) Anemia: Status: Chronic Assessment and plan: Hgb of 12. Elevated MCV Check B12, folate, iron. No evidence noted on CT chest of any bleeding d/t the lung mass and the erosion of the mass into the chest wall. INR pending. Monitor. History of Present Illness History of Present Illness Chief Complaint: Right sided chest and back pain Narrative: This is a 46-year-old male, current smoker, not vaccinated for COVID (had Covid in October2021). He presented to the ER from urgent care for evaluation of right-sided chest pain and back pain, shortness of breath, elevated D-dimer concern for PE.? Patient stated that he has had right-sided chest aching worse with movement, taking a deep breath. Currently with more back than chest pain.He reports mild, dry, baseline cough particularly with a deep breath.? He also c/o pain/heaviness in the right upper arm. He denied trauma, headache, fever, productive cough, wheezing, abdominal pain, nausea, vomiting, history of DVT or PE, pain or swelling in his calf Initial BP 142/89. HR 80's. RR 13-18. RA O2 sat. upper 90's WBC count normal. Hgb 12. Platelets 401. INR pending. D dimer 840. Lytes normal. Creatinine 1.1. CTA chest. 1. Negative for pulmonary embolism. 2. Negative for aortic dissection. 3. Right upper lobe mass with chest wall invasion. Advanced stage lung cancer suspected. Biopsy and PET-CT are advised. 4. Right pleural metastases. 5. Mediastinal lymphadenopathy. 6. 7. Compression of the superior vena cava by mediastinal lymphadenopathy, without occlusion. ED physician spoke with Heme/Onc at [facility] [place]. They would like to urgently pursue obtaining tissue for diagnostics. Admitted for observation; pain control and formulate plan of approach to obtaining tissue sample of the mass. Review of Systems All systems reviewed & are unremarkable except as noted in HPI and below PFSH All Active Problems (Updated 01/09/22 @ 04:29 by Antoine Colindres MD) Anemia (Chronic) Tobacco abuse disorder (Acute) Mass of upper lobe of right lung (Acute) Mediastinal lymphadenopathy (Acute) Occlusion of right subclavian vein (Acute) Medical History (Updated 01/09/22 @ 04:29 by Antoine Colindres MD) Cyst removed in throat as child Social History Smoking/Tobacco Use Status: Current every day Tobacco Type: cigarettes Smoking risk assessment performed?: Yes Alcohol Intake: never Drug use: Never Substance use type: does not use Do you feel safe at home: Yes Do you feel safe in your relationship?: Yes Meds Allergies and Home Medications Allergies Allergy/AdvReac Type Severity Reaction Status Date / Time No Known Allergies Allergy Unverified 02/08/19 02:30 Home Medications Medication Instructions Recorded Confirmed Type Unknown [No Known Home Meds] 01/19/15 02/08/19 History Exam Narrative Exam Narrative: Pt standing at beside; R sided upper back pain preventing him from lying down comfortably. Const General: cooperative and no acute distress Nutritional Appearance: average body habitus Orientation: alert and oriented to person Eyes General: appearance normal, both eyes and all related structures Sclera: sclerae normal Neck Neck: full ROM and no JVD Chest Chest: no tenderness Resp Effort & Inspection: normal respiratory effort Auscultation: clear to auscultation bilaterally and diminished lung sounds Cardio Rate: regular rate Rhythm: regular rhythm Heart Sounds: S1 normal and S2 normal GI Palpation: soft and nontender Auscultation: normal bowel sounds Skin General skin exam: no rashes or lesions noted Extrem General: no pedal edema and no calf tenderness Right upper extremity: normal to inspection; No no edema Psych Appearance: grossly normal Mental Status: mental status grossly normal Speech and Movement: speech and movement normal Affect: normal affect Results Labs Result diagrams: 01/08/22 23:10 01/08/22 23:10 Labs: Laboratory Results - last 24 hr 01/08/22 01/08/22 01/08/22 23:10 23:10 23:20 WBC 10.36 RBC 3.94 L Hgb 12.0 L Hct 37.8 L MCV 95.9 H MCH 30.5 MCHC 31.7 L RDW 13.2 Plt Count 401 H MPV 8.5 Immature Gran % 0.3 Neutrophils % 58.7 Lymphocytes % 27.7 Monocytes % 9.7 Eosinophils % 3.0 Basophils % 0.6 Nucleated RBC % 0 Absolute Neutrophils 6.09 Absolute Lymphocytes 2.87 Absolute Monocytes 1.00 H Absolute Eosinophils 0.31 Absolute Basophils 0.06 Sodium 140 Potassium 3.8 Chloride 104 Carbon Dioxide 28.5 Anion Gap 7.5 BUN 16 Creatinine 1.1 Estimated GFR/1.73 m2 >= 60.00 Glucose 104 Calcium 9.1 Total Bilirubin 0.2 AST 17 ALT 22 Alkaline Phosphatase 125 H Lactate Dehydrogenase 235 H Troponin I < 50 Total Protein 8.2 Albumin 3.4 Add-On Test Request DONE Last Vital Signs Temp 36.8 C 01/09/22 03:27 Pulse 78 01/09/22 03:27 Resp 17 01/09/22 03:27 BP 149/83 H 01/09/22 03:27 Pulse Ox 97 01/09/22 03:27
[2022-01-09 04:21] LABS: Source Nasal/Nares
[2022-01-09] MEDS: Ketorolac 30 MG/ML VIAL IVP ×2 (04:30→19:33)
[2022-01-09] MEDS: Normal Saline Flush 10 ML SYR IVP ×2 (04:31→08:05)
[2022-01-09 07:16] LABS: INR 1.1 (0.9-1.1); Prothrombin Time 10.9 sec (9.3-11.0)
[2022-01-09 07:40] LABS: Iron 38 ug/dL (65-175); Total Iron Binding Capacity 238 ug/dL (250-450); Transferrin Sat 16 % (20-55)
[2022-01-09 07:48] LABS: Folate 10.7 ng/mL (8.6-20.0); Vitamin B12 635 pg/mL (193-986)
[2022-01-09 08:05] VITALS: BP 122/72; PULSE 57; RESP 12; TEMP 36.1; O2SAT 96
[2022-01-09] MEDS: oxyCODONE 5 MG TAB PO ×2 (08:05→16:01)
--- NOTE | 2022-01-09 10:03 | INITIAL_ITS ---
- If Service Date Differs Date of service: 01/09/22 Time of Service: 10:03 Care Management Initial Assess REASON FOR HOSPITALIZATION:: RUL mass PAST MEDICAL HISTORY/PAST SURGICAL HISTORY:: All Active Problems (Updated 01/09/22 @ 04:29 by Antoine Colindres MD). Anemia (Chronic). Tobacco abuse disorder (Acute). Mass of upper lobe of right lung (Acute). Mediastinal lymphadenopathy (Acute). Occlusion of right subclavian vein (Acute). Medical History (Updated 01/09/22 @ 04:29 by Antoine Colindres MD). Cyst. removed in throat as child PREVIOUS FUNCTIONAL STATUS/SOCIAL/FAMILY SUPPORTS:: Yazan lives alone in a single family home in [place], [place]. He is and has one daughter, Hillary, who is identified as his next of kin. 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 CURRENT FUNCTIONAL STATUS:: Yazan was sitting on the edge of the bed fully dressed when CM met with him. He appeared visibly upset and stated that he was going to leave [place] and drive to [facility]. He has been NPO all day and is to have an ultrasound and possibly a biopsy this afternoon. Yazan was found to have a large lung mass highly suspicious for metastatic, invasive lung cancer. He informed CM that if we could not tell him what time the procedure would be done, he would leave. CM and the CC were able to determine that the ultrasound is scheduled for 3:30 pm. CM informed Yazan of this and he agreed to remain at [facility]. ADVANCE DIRECTIVES:: none on file Has patient been provided with info about the portal/API?: Yes Did the patient sign up for the portal?: No CODE STATUS:: Full Code INSURANCE COVERAGE / FINANCIAL ISSUES:: Medicaid CURRENT HOME/COMMUNITY SERVICES/EQUIPMENT:: none PRIMARY CARE PHYSICIAN:: Heather Schneider POTENTIAL DISCHARGE NEEDS:: follow up with surgery, PCP and plan of care PATIENT/FAMILY EDUCATION NEEDS:: Review of discharge instructions, limitations, activity, follow up plan, Ask Me Three TRANSPORTATION:: to be determined by disposition PLAN:: Cornelius discharge plan is not clear at this time. He is undergoing an emergent workup for a new lung mass and may require transfer to a tertiary care facility. CM will continue to support Yazan and assess for discharge planning concerns.
--- NOTE | 2022-01-09 13:44 | NUR.NOTE ---
This RN was called into patient's room by family member and CM. Patient is irritable about being NPO and awaiting imaging. Patient has orange soda at bedside that he has been drinking from. Patient is not willing to let RN take soda away. Patient was re-educated about the need for being NPO for possible procedure. Patient is a current smoker and wanting to leave the building to have a cigarette. Educated patient about how he is not able to leave the floor to smoke. Patient states they let me last night (in the ER). Nicotine patch offered and refused by patient. CM continuing to talk to patient. Nursing Note:
--- NOTE | 2022-01-09 14:32 | PHA.REVIEW ---
Pharmacy Admission Review - Admission Clinical Review (Last Reviewed 01/09/22 @ 04:26 by Antoine Colindres MD) Tobacco abuse disorder (Acute) Mass of upper lobe of right lung (Acute) Mediastinal lymphadenopathy (Acute) Occlusion of right subclavian vein (Acute) No Known Allergies Allergy (Unverified 02/08/19 02:30) Resuscitation Status Full Code Height 5 ft 9 in Weight 79.4 kg - Renal Dosing Renal Dosing: BUN 16 mg/dL (7-18) 01/08/22 23:10 Creatinine 1.1 mg/dL (0.70-1.30) 01/08/22 23:10 Medications needing adjustments: Reviewed (SCr: 1.1, eCrCl: 82.00mL/min, all medications dosed appropriately.) - Anticoagulation Anticoagulation: Hgb 12.0 g/dL (13.5-17.5) L 01/08/22 23:10 Hct 37.8 % (40.0-50.0) L 01/08/22 23:10 Plt Count 401 10^3/uL (130-400) H 01/08/22 23:10 INR 1.1 (0.9-1.1) 01/09/22 06:45 Creatinine 1.1 mg/dL (0.70-1.30) 01/08/22 23:10 DVT Prophylaxis: Reviewed (Patient ambulating, SCD's offered.) - Opiate Usage Evaluate Pain Scale/Pains Meds: Reviewed (Pain scale ratings 0-8 this admission. Oxycodone PRN ordered, only one dose administered.) Scheduled Bowel Reg ordered if on Opiates?: No (PRN Miralax ordered) - Relevant Labs Sodium 140 mmol/L (136-145) 01/08/22 23:10 Potassium 3.8 mmol/L (3.5-5.1) 01/08/22 23:10 Chloride 104 mmol/L (98-107) 01/08/22 23:10 Electrolytes, C-Reactive P, ESR: N/A - DM Control DM Control: Glucose 104 mg/dL (74-106) 01/08/22 23:10 Insulin Dosing: N/A - Heart Failure/VT Heart Failure/VT: Troponin I < 50 ng/L (<or=60) 01/08/22 23:10 EF%, JOANN's, B-Blockers, Diuretics: N/A - BP Control BP Control: Blood Pressure 122/72 Blood Pressure 149/83 Blood Pressure 131/84 If elevated: Reviewed - Qtc Review If Elevated: N/A (QTc 438 on admission) - IV to PO Switch IV Medications: Reviewed - Home Meds Home Med List reviewed: Reviewed - Current meds Current Medication Order Review: Reviewed - Comments Comments/Follow Ups: Continue to monitor labs, vitals and for medication changes.
[2022-01-09 16:00] VITALS: BP 154/84; PULSE 71; RESP 19; TEMP 36.8; O2SAT 98
--- NOTE | 2022-01-09 16:08 | CHAPLAIN ---
From ED and CM notes, it looks like Yazan came to the ED going to Urgent Care. He's been waiting to have a biopsy done. When I visited with Yazan he was fully dressed and sitting at the edge of his bed. He said he hasn't eaten in two days and would like something to eat. He was NPO because of a possible biopsy today, but he just found out he the procedure won't be done until tomorrow so an [employer] is getting him some crackers while he waits for supper. He told me he's been in touch with family, but didn't elaborate on who that is. CM notes state he has a daughter in the area. I will continue to visit.
--- NOTE | 2022-01-09 16:53 | PGE_ITS ---
Date of Service Date of service: 01/09/22 Time of Service: 16:53 Subjective Subjective Interval history since last seen: Case discussed with Dr Castillo - the location of the tumor is too close to axillary vessels for us to be able to biopsy it. She does not think it will be amenable to bronchoscopy. D[place] [facility] [place] and requested IR review. Awaiting call back, but I was told that it was likely that the patie nt would not be able to get the bx until Thursday. Above communicated to patient. Dr Wagner is consulted but not in house until tomorrow. Objective Last Vital Signs Temp 36.8 C 01/09/22 16:00 Pulse 71 01/09/22 16:00 Resp 19 01/09/22 16:00 BP 154/84 H 01/09/22 16:00 Pulse Ox 98 01/09/22 16:00 Laboratory Results - last 24 hr 01/08/22 01/08/22 01/08/22 23:10 23:10 23:20 WBC 10.36 RBC 3.94 L Hgb 12.0 L Hct 37.8 L MCV 95.9 H MCH 30.5 MCHC 31.7 L RDW 13.2 Plt Count 401 H MPV 8.5 Immature Gran % 0.3 Neutrophils % 58.7 Lymphocytes % 27.7 Monocytes % 9.7 Eosinophils % 3.0 Basophils % 0.6 Nucleated RBC % 0 Absolute Neutrophils 6.09 Absolute Lymphocytes 2.87 Absolute Monocytes 1.00 H Absolute Eosinophils 0.31 Absolute Basophils 0.06 PT INR Sodium 140 Potassium 3.8 Chloride 104 Carbon Dioxide 28.5 Anion Gap 7.5 BUN 16 Creatinine 1.1 Estimated GFR/1.73 m2 >= 60.00 Glucose 104 Calcium 9.1 Iron TIBC Transferrin % Sat Total Bilirubin 0.2 AST 17 ALT 22 Alkaline Phosphatase 125 H Lactate Dehydrogenase 235 H Troponin I < 50 Total Protein 8.2 Albumin 3.4 Vitamin B12 Folate COVID-19 Source SARS-CoV-2 (PCR) Add-On Test Request DONE 01/09/22 01/09/22 01/09/22 03:00 06:45 06:45 WBC RBC Hgb Hct MCV MCH MCHC RDW Plt Count MPV Immature Gran % Neutrophils % Lymphocytes % Monocytes % Eosinophils % Basophils % Nucleated RBC % Absolute Neutrophils Absolute Lymphocytes Absolute Monocytes Absolute Eosinophils Absolute Basophils PT 10.9 INR 1.1 Sodium Potassium Chloride Carbon Dioxide Anion Gap BUN Creatinine Estimated GFR/1.73 m2 Glucose Calcium Iron 38 L TIBC 238 L Transferrin % Sat 16 L Total Bilirubin AST ALT Alkaline Phosphatase Lactate Dehydrogenase Troponin I Total Protein Albumin Vitamin B12 Folate COVID-19 Source Nasal/Nares SARS-CoV-2 (PCR) Negative Add-On Test Request 01/09/22 06:45 WBC RBC Hgb Hct MCV MCH MCHC RDW Plt Count MPV Immature Gran % Neutrophils % Lymphocytes % Monocytes % Eosinophils % Basophils % Nucleated RBC % Absolute Neutrophils Absolute Lymphocytes Absolute Monocytes Absolute Eosinophils Absolute Basophils PT INR Sodium Potassium Chloride Carbon Dioxide Anion Gap BUN Creatinine Estimated GFR/1.73 m2 Glucose Calcium Iron TIBC Transferrin % Sat Total Bilirubin AST ALT Alkaline Phosphatase Lactate Dehydrogenase Troponin I Total Protein Albumin Vitamin B12 635 Folate 10.7 COVID-19 Source SARS-CoV-2 (PCR) Add-On Test Request
--- NOTE | 2022-01-09 17:46 | SCONE_ITS ---
Date of service: 01/09/22 Time of Service: 17:46 Assessment and Plan Assessment and plan (1) Anemia: Status: Chronic (2) Tobacco abuse disorder: Status: Acute (3) Mass of upper lobe of right lung: Status: Acute (4) Mediastinal lymphadenopathy: Status: Acute (5) Occlusion of right subclavian vein: Status: Acute (6) Metastatic lung cancer (metastasis from lung to other site): Status: Acute Assessment and plan: -pet scan -CT guided bx -metastatic lung cancer. onc eval for chemo/possble XRT ending on cell type. Patient is not a surgical candidate. -Supportive care -Stop smoking -DVT prophylaxis. History of Present Illness Narrative: Patient is a 2 pack-a-day smoker. He did have Covid in October. He came into the ER on 01/08 complaining of severe pain. He does have a large mass in the periphery of the right lung which is attached to the anterior chest wall. And currently fortunately it is very close to the axillary artery and I do not feel comfortable attempting ultrasound biopsy on this. I did review his ultrasound and real-time with Dr. Pineda. Dr. Pineda does concur that he needs a CT-guided biopsy. I did discuss the case with Dr. Manzanares we will plan on arranging for CT- guided biopsy at [facility] All Active Problems (Updated 01/09/22 @ 17:50 by Elisha Castillo DO) Metastatic lung cancer (metastasis from lung to other site) (Acute) Anemia (Chronic) Tobacco abuse disorder (Acute) Mass of upper lobe of right lung (Acute) Mediastinal lymphadenopathy (Acute) Occlusion of right subclavian vein (Acute) Medical History (Updated 01/09/22 @ 17:50 by Elisha Castillo DO) Cyst removed in throat as child Social History Smoking/Tobacco Use Status: Current every day Tobacco Type: cigarettes Smoking risk assessment performed?: Yes Alcohol Intake: never Drug use: Never Substance use type: does not use Do you feel safe at home: Yes Do you feel safe in your relationship?: Yes Exam Chest Other: No external palpable tumor or lymph nodes in the right axilla Please see CT results in [facility] Resp Other: Rhonchi on the right side GI Other: No tumor noted in the liver on CT Results Last Vital Signs Temp 36.8 C 01/09/22 16:00 Pulse 71 01/09/22 16:00 Resp 19 01/09/22 16:00 BP 154/84 H 01/09/22 16:00 Pulse Ox 98 01/09/22 16:00 Labs Result diagrams: 01/08/22 23:10 01/08/22 23:10 Labs: Laboratory Results - last 24 hr 01/08/22 01/08/22 01/08/22 23:10 23:10 23:20 WBC 10.36 RBC 3.94 L Hgb 12.0 L Hct 37.8 L MCV 95.9 H MCH 30.5 MCHC 31.7 L RDW 13.2 Plt Count 401 H MPV 8.5 Immature Gran % 0.3 Neutrophils % 58.7 Lymphocytes % 27.7 Monocytes % 9.7 Eosinophils % 3.0 Basophils % 0.6 Nucleated RBC % 0 Absolute Neutrophils 6.09 Absolute Lymphocytes 2.87 Absolute Monocytes 1.00 H Absolute Eosinophils 0.31 Absolute Basophils 0.06 PT INR Sodium 140 Potassium 3.8 Chloride 104 Carbon Dioxide 28.5 Anion Gap 7.5 BUN 16 Creatinine 1.1 Estimated GFR/1.73 m2 >= 60.00 Glucose 104 Calcium 9.1 Iron TIBC Transferrin % Sat Total Bilirubin 0.2 AST 17 ALT 22 Alkaline Phosphatase 125 H Lactate Dehydrogenase 235 H Troponin I < 50 Total Protein 8.2 Albumin 3.4 Vitamin B12 Folate COVID-19 Source SARS-CoV-2 (PCR) Add-On Test Request DONE 01/09/22 01/09/22 01/09/22 03:00 06:45 06:45 WBC RBC Hgb Hct MCV MCH MCHC RDW Plt Count MPV Immature Gran % Neutrophils % Lymphocytes % Monocytes % Eosinophils % Basophils % Nucleated RBC % Absolute Neutrophils Absolute Lymphocytes Absolute Monocytes Absolute Eosinophils Absolute Basophils PT 10.9 INR 1.1 Sodium Potassium Chloride Carbon Dioxide Anion Gap BUN Creatinine Estimated GFR/1.73 m2 Glucose Calcium Iron 38 L TIBC 238 L Transferrin % Sat 16 L Total Bilirubin AST ALT Alkaline Phosphatase Lactate Dehydrogenase Troponin I Total Protein Albumin Vitamin B12 Folate COVID-19 Source Nasal/Nares SARS-CoV-2 (PCR) Negative Add-On Test Request 01/09/22 06:45 WBC RBC Hgb Hct MCV MCH MCHC RDW Plt Count MPV Immature Gran % Neutrophils % Lymphocytes % Monocytes % Eosinophils % Basophils % Nucleated RBC % Absolute Neutrophils Absolute Lymphocytes Absolute Monocytes Absolute Eosinophils Absolute Basophils PT INR Sodium Potassium Chloride Carbon Dioxide Anion Gap BUN Creatinine Estimated GFR/1.73 m2 Glucose Calcium Iron TIBC Transferrin % Sat Total Bilirubin AST ALT Alkaline Phosphatase Lactate Dehydrogenase Troponin I Total Protein Albumin Vitamin B12 635 Folate 10.7 COVID-19 Source SARS-CoV-2 (PCR) Add-On Test Request
[2022-01-09 23:32] VITALS: BP 120/66; PULSE 74; RESP 17; TEMP 36.7; O2SAT 96
[2022-01-10] MEDS: oxyCODONE 5 MG TAB PO (02:49)
[2022-01-10] MEDS: Ketorolac 30 MG/ML VIAL IVP ×2 (05:35→13:30)
[2022-01-10] MEDS: Normal Saline Flush 10 ML SYR IVP ×2 (05:36→13:31)
[2022-01-10] MEDS: Acetaminophen 325 MG TAB PO ×2 (05:36→13:31)
[2022-01-10 07:01] LABS: Abs Immature Grans 0.03 10^3/uL (0.0-0.06); Absolute Basophil Count 0.08 10^3/uL (0.0-0.2); Absolute Eosinophil Count 0.44 10^3/uL (0.0-0.7); Absolute Lymphocyte Count 3.07 10^3/uL (1.2-3.4); Absolute Monocyte Count 0.77 10^3/uL (0.1-0.8); Basophils % 0.8; Eosinophils % 4.5; HCT 38.3 % (40.0-50.0); HGB 12.3 g/dL (13.5-17.5); Immature Grans % 0.3; Lymphocytes % 31.7; MCH 31.4 pg (27.0-33.0); MCHC 32.1 % (32.0-36.0); MCV 97.7 fL (80-95); MPV 8.8 fL (8.0-11.0); Monocytes % 7.9; Neutrophils % 54.8; Nucleated RBC 0 %; Platelet Count 417 10^3/uL (130-400); RBC 3.92 10^6/uL (4.36-5.78); RDW 13.5 % (11.8-14.1); RDW-SD 48.2 fL; WBC 9.69 10^3/uL (4.4-10.8)
[2022-01-10 07:17] LABS: BUN 15 mg/dL (7-18); Calcium 9.4 mg/dL (8.5-10.1); Chloride 103 mmol/L (98-107); Glucose 111 mg/dL (74-106); Magnesium 2.3 mg/dL (1.8-2.4); Potassium 4.1 mmol/L (3.5-5.1); Sodium 137 mmol/L (136-145)
[2022-01-10 07:37] VITALS: BP 130/63; PULSE 66; RESP 18; TEMP 36.1; O2SAT 94
--- NOTE | 2022-01-10 08:47 | W.PULMCON ---
General Date Of Service Date of service: 01/10/22 Time of Service: 08:47 Reason for Consult: Pulmonary masses Assessment and Plan Assessment and plan (1) Metastatic lung cancer (metastasis from lung to other site): Status: Acute (2) Superior vena cava compression syndrome: Status: Acute (3) Tobacco abuse disorder: Status: Acute Assessment and plan: This is an unfortunate 46 yo man who presented to the ED for chest pain found to have likely metastatic cancer of lung origin. He is unable to have bronchoscopic biopsy at our hospital due to the high bleeding risk of the central airways that could result due to a blind biopsy. For this complex lesion an endobronchoscopic ultrasound guided biopsy would be needed to perform this safely. An easier solution would be to have the peripheral right lung mass biopsies via IR CT guided percutaneous biopsy. I agree with my surgical colleagues that this is the safest and likely highest yield biopsy for this type of lesion. I am hopeful that he will have a mutation present amenable to more tailored treatment options. He is planned for IR biopsy at [facility] - they will call him to arrange date and time. He does not have pulmonary related symptoms outside of his oncological symptoms and so there is not need for pulm follow up with me at this point. I discussed with the patient who agrees and will call my office if this changes, at which point I would be more than happy to see him. Metastatic lung cancer - IR biopsy at [facility] Superior vena cava syndrome - assessment by oncology at [facility] - may require vascular consultation for consideration of stent Smoking - cessation - no respiratory symptoms History of Present Illness Narrative: This is a 46 yo man with tobacco use who was admitted for right sided chest pain found to have a large right sided paratracheal mass, right large pleural adjacent peripheral mass, a couple other right sided pleural based nodule as well a pulmonary nodule on the right. There is also evidence of superior vena cava compression. I was asked to see the patient for possibility of bronchoscopic biopsy of the mass. The peripheral mass is too distal to reach with standard bronchoscopy. The right paratracheal mass is adjacent to the tracheal and could theoretically be biopsied with a Mayers needle (blind). After careful evaluation of his chest CT there are vascular structures running through this right paratracheal mass and without the availability of endobronchoscopic ultrasound at our facility this would be an unsafe procedure to perform here - particularly given its proximal location, ie - if hemmorhage were to occur I would be unable to balloon tamponade it as it would bleed into the trachea. I agree with my surgical colleague that an IR CT guided biopsy of the larger peripheral right mass is the safest and likely largest yield procedure for him to have. IR biopsy was unable to be arranged to occur at [facility] today but will be done as an outpatient. He tells me he has right sided chest pain and right arm numbness. He denies shortness of breath or other respiratory symptoms. He has noticed weight loss in the past several months. The chest pain has been present for a month and the arm numbness more recently came about. He tells me his sister had breast cancer. Review of Systems All systems reviewed & are unremarkable except as noted in HPI and below PFSH All Active Problems (Updated 01/10/22 @ 14:45 by Allegra Wagner MD) Superior vena cava compression syndrome (Acute) Metastatic lung cancer (metastasis from lung to other site) (Acute) Anemia (Chronic) Tobacco abuse disorder (Acute) Mass of upper lobe of right lung (Acute) Mediastinal lymphadenopathy (Acute) Medical History (Updated 01/10/22 @ 14:45 by Allegra Wagner MD) Cyst removed in throat as child Occlusion of right subclavian vein Social History Smoking/Tobacco Use Status: Current every day Tobacco Type: cigarettes Smoking risk assessment performed?: Yes Alcohol Intake: never Drug use: Never Substance use type: does not use Do you feel safe at home: Yes Do you feel safe in your relationship?: Yes Visit Medication and Allergies Active Medications Generic Name Dose Route Start Last Admin Trade Name Freq PRN Reason Stop Dose Admin Acetaminophen 325 - 650 mg 01/09/22 02:20 01/10/22 05:36 Acetaminophen 325 Mg Tab PO 650 mg Q4H PRN PRN Administration Dimethicone/Zinc Oxide 0 gm 01/09/22 02:20 Tonny Protect Cream 142 Gm Tube TP PRN PRN IV Miscellaneous Supplies 1 each 01/08/22 23:15 Iv Access IV DIRECTED DORENE Ketorolac Tromethamine 30 mg 01/09/22 03:49 01/10/22 05:35 Ketorolac 30 Mg/Ml Vial IVP 01/14/22 03:48 30 mg Q6H PRN PRN Administration Nicotine 21 mg 01/09/22 04:16 Nicotine 21 Mg/24 Hr Patch TD DAILY PRN PRN Oxycodone HCl 5 mg 01/09/22 04:36 01/10/22 02:49 Oxycodone 5 Mg Tab PO 5 mg Q6H PRN PRN Administration Polyethylene Glycol 17 gm 01/09/22 02:20 Polyethylene Glycol 3350 17 Gm Packet PO DAILY PRN PRN Constipation Sodium Chloride 0 ml 01/09/22 04:16 01/10/22 05:36 Normal Saline Flush 10 Ml Syr IVP 10 ml PRN PRN Administration Allergies No Known Allergies Allergy (Unverified 02/08/19 02:30) Exam Const General: cooperative and healthy appearing [facility] Head: normal to inspection Eyes Pupils: PERRL Resp Auscultation: rales on the right GI Inspection: normal to inspection Skin General skin exam: no rashes or lesions noted Neuro General: patient alert, patient awake and patient oriented x3 Extrem General: no clubbing, no cyanosis and no edema Psych Appearance: grossly normal Results Last Vital Signs Temp 36.1 C L 01/10/22 07:37 Pulse 66 01/10/22 07:37 Resp 18 01/10/22 07:37 BP 130/63 01/10/22 07:37 Pulse Ox 94 01/10/22 07:37 Labs Result diagrams: 01/10/22 06:22 01/10/22 06:22 Labs: Laboratory Results - last 24 hr 01/10/22 01/10/22 06:22 06:22 WBC 9.69 RBC 3.92 L Hgb 12.3 L Hct 38.3 L MCV 97.7 H MCH 31.4 MCHC 32.1 RDW 13.5 Plt Count 417 H MPV 8.8 Immature Gran % 0.3 Neutrophils % 54.8 Lymphocytes % 31.7 Monocytes % 7.9 Eosinophils % 4.5 Basophils % 0.8 Nucleated RBC % 0 Absolute Neutrophils 5.30 Absolute Lymphocytes 3.07 Absolute Monocytes 0.77 Absolute Eosinophils 0.44 Absolute Basophils 0.08 Sodium 137 Potassium 4.1 Chloride 103 Carbon Dioxide 28.0 Anion Gap 6.0 BUN 15 Creatinine 1.0 Estimated GFR/1.73 m2 >= 60.00 Glucose 111 H Calcium 9.4 Magnesium 2.3
[2022-01-10 11:52] LABS: COVID-19 RT-PCR UVMMC Result Negative (Negative)
--- NOTE | 2022-01-10 13:38 | W.PM.DS.N ---
Date of service: 01/10/22 Time of Service: 13:38 DS: Diagnosis Discharge Diagnosis (1) Mass of upper lobe of right lung: Status: Acute (2) Metastatic lung cancer (metastasis from lung to other site): Status: Acute (3) Occlusion of right subclavian vein: Status: Acute (4) Mediastinal lymphadenopathy: Status: Acute (5) Anemia: Status: Chronic (6) Tobacco abuse disorder: Status: Acute Discharge Plan Disposition Patient Disposition: HOME Condition: Stable Discharge Details Reason For Visit: Chest Pain,Lung Mass Admit Date/Time: 01/09/22 02:20 Admit Provider: Antoine Colindres Attending Provider: Antoine Colindres Primary Care Provider: Heather Schneider [facility] Hospital Course Hospital Course: Mr Sprague is a 46 year old male with PMHx of tobacco abuse who was observed on [facility] Hospitalist service from 01/09/22 until 01/10/22 after presenting to the ED with right -sided chest pain, back pain, and shortness of breath. His CT of the chest revealed a peripheral right upper lobe mass 7.9 x 5.1 x 5.1 cm abutting chest wall and possibly extending into soft tissues. There was evidence of additional lung nodules, atelectasis due to above findings, and mediastinal adenopathy. There was compression of SVC by mediastinal adenopathy. [facility] oncology was consulted and recommended attempting to obtain bx. Our general surgery and pulmonology were unable to do that at our facility due to the proximity of vascular structures to all possible biopsy sites accessible to them. Therefore, [facility] was consulted and will be performing the biopsy as outpatient. They will contact the patient for appointment time and date. The patient does report mild pain in RUE and his back, but does not feel short of breath and is felt to be stable for discharge home with follow up with [facility] IR, Dr Wagner of pulmonology, and [facility] oncology. Home Meds and New Rx's Prescriptions: New Acetaminophen [Tylenol] 325 - 650 mg PO Q4H PRN PRNQty: 0 0RF nicotine 21 mg/24 hr Patch 24 Hour 21 mg transdermal DAILY PRN PRNQty: 30 0RF oxycodone 5 mg Tablet 5 mg PO Q6H PRN MDD 20 mg PRN (Reason: pain) Qty: 20 0RF docusate sodium 100 mg capsule 100 mg PO BID Qty: 60 0RF ibuprofen 600 mg tablet 600 mg PO TID PRN (Reason: pain) Qty: 30 0RF Continued cyclobenzaprine 10 mg tablet 10 mg PO HS PRN0RF Rx Instructions: NEEDED FOR BACK PAIN, MUSCLE SPASM albuterol sulfate 90 mcg/actuation HFA aerosol inhaler 2 puff INHALATION Q4H PRN0RF Label Comments: USE 1 TO 2 PUFFS EVERY 4 -6 HOURS NEEDED FOR FOR SHORTNESS OF BREATH, WHEEZING AND COUGH, use with spacer Discharge Instructions Instructions: Lung Cancer (DC) Additional Instructions: Return to the hospital with any fever, bleeding, including coughing up blood, chest pain uncontrolled by above medications, or shortness of breath. Follow up with [facility] interventional radiology for your biopsy, with Dr Wagner of pulmonology, with [facility] oncology, and with your PCP. Referrals: [facility] [Outside] (Interventional Radiology Referral for biopsy of R lung mass) HEMATOLOGY/ONC,[facility] [OTHER] - (lung mass) Allegra Wagner MD [ [facility] STAFF PHYSICIAN] - Activity:: Activity as Tolerated Equipment/Supplies:: No Equipment Needed Diet:: As Tolerated Discharge Orders Discharge Orders: Discharge Order (Routine); Ordered 01/10/22 Ordered By: Ann-Marie Manzanares DS: Summary Time Spent with Patient providing and/or coordinating discharge services: Greater than 30 minutes Status at Discharge Functional status at discharge: independent ambulation Overall status at discharge: patient is not back to baseline Mental Status: mental status grossly normal Speech and Movement: speech and movement normal Mood: congruent mood Affect: normal affect Exam Narrative Exam Narrative: General: Pleasant Middle Aged male who is not in respiratory distress, appears comfortable HEENT: EOMI, MMM Heart: RRR, ?Quiet EDDIE Lungs: Diminished breath sounds in R lung field with an expiratory squeak in R midlung; CTA on the left Abdomen: soft, nontender, nondistended Extremities: No edema BLE's, ?trace edema RUE Psych Mental Status: mental status grossly normal Speech and Movement: speech and movement normal Mood: congruent mood Affect: normal affect DS: Data Vitals/I&O Vitals and I&O: Vital Signs Temperature 36.1 C L 01/10/22 07:37 Temperature Source Tympanic 01/10/22 07:37 Pulse 66 01/10/22 07:37 Pulse Rhythm Regular 01/10/22 08:30 Pulse 84 01/08/22 23:31 Respiratory Rate 18 01/10/22 07:37 Respiratory Effort Non-Labored 01/10/22 08:30 Respiratory Depth Normal 01/10/22 08:30 Respiratory Pattern Normal 01/10/22 08:30 Blood Pressure 130/63 01/10/22 07:37 Blood Pressure Mean 93 01/08/22 23:31 Blood Pressure Position Supine 01/08/22 22:50 Pulse Oximetry 94 01/10/22 07:37 Oxygen Delivery Method Room Air 01/10/22 07:37 Oxygen Flow Rate 0 01/10/22 07:37 Pain Level 8 01/10/22 13:31 Intake & Output 01/09/22 01/10/22 01/10/22 23:59 11:59 23:59 Intake Total 100 / 100 260 / 260 Output Total 200 / 200 Balance -100 / -100 260 / 260 Intake: IV 10 / 10 Oral 100 / 100 250 / 250 Output: Urine 200 / 200 Other: Urine Color Yellow Urine Appearance Clear Comment Patient independent to the bathroom. Patient denies GI/ issues. Voiding Methods Toilet Toilet Data Completed and Pending Completed studies during hospitalization [Text1]: CT/CTA chest: 1. No evidence of pulmonary embolism, thoracic aortic dissection or aneurysm. 2. Right upper lobe mass with findings suggestive of involvement of the adjacent rib and chest wall.? The findings are suggestive of advanced stage lung carcinoma. 3. Pleural metastatic disease and mediastinal adenopathy. 4. Compression of the superior vena cava by the mediastinal adenopathy. US thorax: 5.8 cm right upper lobe pulmonary mass.? CT abdomen/pelvis w/ contrast: No evidence of abdominal or pelvic mass or metastatic disease.? Labs on day of discharge: Labs from last 24 hours 01/10/22 01/10/22 01/08/22 06:22 06:22 23:20 WBC 9.69 RBC 3.92 L Hgb 12.3 L Hct 38.3 L MCV 97.7 H MCH 31.4 MCHC 32.1 RDW 13.5 Plt Count 417 H MPV 8.8 Immature Gran % 0.3 Neutrophils % 54.8 Lymphocytes % 31.7 Monocytes % 7.9 Eosinophils % 4.5 Basophils % 0.8 Nucleated RBC % 0 Absolute Neutrophils 5.30 Absolute Lymphocytes 3.07 Absolute Monocytes 0.77 Absolute Eosinophils 0.44 Absolute Basophils 0.08 Sodium 137 Potassium 4.1 Chloride 103 Carbon Dioxide 28.0 Anion Gap 6.0 BUN 15 Creatinine 1.0 Estimated GFR/1.73 m2 >= 60.00 Glucose 111 H Calcium 9.4 Magnesium 2.3 SARS-CoV-2 (PCR) Negative Nasopharyn COVID-19 PCR Not Applicable Ref Test Perform Site [facility] [address] [facility] PFSH All Active Problems (Updated 01/09/22 @ 17:50 by Elisha Castillo DO) Metastatic lung cancer (metastasis from lung to other site) (Acute) Anemia (Chronic) Tobacco abuse disorder (Acute) Mass of upper lobe of right lung (Acute) Mediastinal lymphadenopathy (Acute) Occlusion of right subclavian vein (Acute) Medical History (Updated 01/09/22 @ 17:50 by Elisha Castillo DO) Cyst removed in throat as child Social History Smoking/Tobacco Use Status: Current every day Tobacco Type: cigarettes Smoking risk assessment performed?: Yes Alcohol Intake: never Drug use: Never Substance use type: does not use Do you feel safe at home: Yes Do you feel safe in your relationship?: Yes
--- NOTE | 2022-01-10 17:00 | PDOC.CMDIS ---
- If Service Date Differs Date of service: 01/10/22 Time of Service: 17:00 LACE Index Scoring Tool - Questions: Length of Stay (in days): 1 Acuity (Admit via E.D.?): Yes Comorbidities: Any Tumor E.D. Visits: 1 - Answers: Total Score: 7 Risk of Readmission: Low Risk Care Management Discharge Reason for Hospitalization: RUL mass Discharge Plan: Yazan returned home today with no new services. He will be driven home via private vehicle. He will follow up with his PCP and discharge plan of care. He was happy to be going home. Patient/Family Education Needs: Review discharge instructions and limitations, discussion of self care needs including ask me three.
== END 2022-01-10 14:49 | disposition home or self-care (01) ==
LOC: ER 01-09 03:12 → MS 01-09 03:21
PROVIDERS: Internal Medicine; Physician Assistant; Admitting Provider Family Medicine; Emergency Provider Emergency Medicine; PCP Nurse Practitioner Family; Visit Provider Family Medicine
DX: C34.11 Malignant neoplasm of upper lobe, right bronchus or lung; C77.1 Secondary and unspecified malignant neoplasm of intrathoracic lymph nodes; F17.210 Nicotine dependence, cigarettes, uncomplicated; I87.1 Compression of vein; D64.9 Anemia, unspecified
CPT/HCPCS: 36415; 71275; 80048; 80053; 87635; 93005; 99285; U0003; 74177; 76604; 82607; 82746; 83540; 83550; 83615; 83735; 84484; 85025; 85610; 93010; 99217; 99220; G0378; J1885; J3490

== ENCOUNTER 2022-01-27 21:28 | Emergency (ER) | payer MEDICAID, SELFPAY ==
[2022-01-27] VITALS (13 sets, daily range): BP systolic 141–162; BP diastolic 87–102; PULSE 57–78; RESP 16–31; O2SAT 96–100
--- NOTE | 2022-01-27 21:37 | W.ED.GENAD ---
Discharge Plan Disposition Patient Disposition: HOME Condition: Stable Discharge Details Clinical Impression: Vomiting, Chronic chest pain, History of lung cancer Primary Care Provider: Heather Schneider ED Provider: Parth Casillas Home Meds and New Rx's Prescriptions: New levofloxacin 750 mg tablet 750 mg PO DAILY Qty: 10 0RF Continued cyclobenzaprine 10 mg tablet 10 mg PO HS PRN0RF Rx Instructions: NEEDED FOR BACK PAIN, MUSCLE SPASM albuterol sulfate 90 mcg/actuation HFA aerosol inhaler 2 puff INHALATION Q4H PRN0RF Label Comments: USE 1 TO 2 PUFFS EVERY 4 -6 HOURS NEEDED FOR FOR SHORTNESS OF BREATH, WHEEZING AND COUGH, use with spacer Acetaminophen [Tylenol] 325 - 650 mg PO Q4H PRN PRNQty: 0 0RF nicotine 21 mg/24 hr Patch 24 Hour 21 mg transdermal DAILY PRN PRNQty: 30 0RF oxycodone 5 mg Tablet 5 mg PO Q6H PRN MDD 20 mg PRN (Reason: pain) Qty: 20 0RF docusate sodium 100 mg capsule 100 mg PO BID Qty: 60 0RF ibuprofen 600 mg tablet 600 mg PO TID PRN (Reason: pain) Qty: 30 0RF Discharge Instructions Instructions: Acute Nausea and Vomiting (ED), Colitis (ED) Additional Instructions: At this time your work-up does suggest mild dehydration, and your clinical symptoms are suggestive of a viral gastroenteritis which is causing your vomiting and diarrhea most likely. However there is a chance that there could be a bacterial component to your diarrhea. If your diarrhea and abdominal cramping persist for more than 48 hours, please start the antibiotic as directed. Please take the Zofran as needed to help with nausea. Stay well-hydrated drinking small sips of fluid frequently throughout the day. Avoid fatty, greasy, or tomato-based products. Your lung lesion persist. Please follow-up with your biopsy specialist at [facility] for biopsy of this. If you notice any worsening of your symptoms, or any new symptoms such as vomiting, diarrhea, fever, chills, shortness of breath, chest pain, numbness, weakness, or fainting , please return immediately to the emergency department for reevaluation. Please follow up with your primary care provider as soon as possible for reassessment and reevaluation. As always, it was a pleasure participating in your medical care today. Referrals: Heather Schneider [Primary Care Provider] - Discharge Data Discharge Date/Time-TO BE ENTERED AT DEPARTURE: 01/28/22 01:03 Medical Decision Making <Coco Kramer DO - Last Filed: 01/29/22 14:11> 2140 -- 46-year-old male who is a longtime tobacco smoker recently diagnosed with a right upper lobe lung mass with SVC compression scheduled for [facility] for biopsy due to proximity of mass to surrounding vasculature, presents for vomiting and shortness of breath today. He does admit to right-sided chest pain which is no worse than his usual pain for several months. It was reported that he ate a THC candy bar last night. Blood pressure mildly hypertensive, remainder vitals within normal limits. Oxygen saturation 100% on room air. Patient appears restless and anxious, writhing around stretcher and difficulty answering questions due to what appears to be discomfort and restlessness, suspect due to nausea. He is speaking in 2-3 word sentences mostly because he appears anxious and not in severe respiratory distress. His lungs are clear without wheezing or rhonchi. Differential diagnosis includes acute viral illness, THC reaction, electrolyte abnormality, dehydration, pneumonia, etc. We will place an IV, bolus IV fluids, screening labs, IV Zofran and Ativan and obtain a CT chest abdomen and pelvis. 1020 -- patient reassessed and he is still complaining of nausea and of his chronic right upper chest pain. His vitals are stable. He still appears restless. Patient would likely not be able to lay still for radiology. We will give a dose of Phenergan and Dilaudid. 2300 -- Case endorsed to Dr. Casillas to continue to monitor and follow-up on labs and imaging and final disposition. If patient improves and no other acute significant findings on work-up, will plan for discharge to home with follow-up with [facility] for outpatient lung mass biopsy. Dr Casillas Patient was signed out to me by my colleague Coco Kramer. Please refer to her HPI, physical exam, assessment and plan. Plan at signout was to reassess after labs and imaging, with a plan for discharge for close outpatient follow-up with Interventional radiology for outpatient lung. Laboratory work-up has returned and is stable. Mildly elevated white count, likely reactive from the vomiting. BUN elevated at 19, creatinine 1.1. Anion gap minimally elevated at 12.7. Lipase normal, troponin normal. Reassessment demonstrates notable improvement compared to assessment signout. Patient has no abdominal pain, no nuchal rigidity, no focal neurologic deficits on exam. Patient states that his stomach pain has resolved, he just feels slightly nauseous still. He was given an initial liter of fluids, and we will give him an additional liter prior to discharge. CT scan shows persistence of lung lesion, and also shows evidence of mild colitis versus underdistention. At this time symptoms appear more clinically consistent currently with a viral gastroenteritis picture. We will give Zofran recommend continued fluids and easy diet at home. However we will provide an antibiotic prescription, and if the patient has return of his abdominal pain and continuation of diarrhea 48 hours it would be prudent to start the antibiotic. Discussed red flags which to return. I have extensively reviewed the treatment plan and discharge instructions with the patient. I have addressed all patient concerns at this time. The patient was made aware of what symptoms to monitor for that would warrant a return to the emergency department. Discussed the plan with the patient, they demonstrate verbal understanding and agreement with our assessment and plan at this time. The documentation in this chart was dictated using [employer] dictation software. Please excuse any dictation errors. FINDINGS: Pulmonary arteries: There is no evidence for PE. Aorta: Unremarkable. No aortic aneurysm. No aortic dissection. Lungs: Unremarkable. No consolidation. No masses. Pleural spaces: Complex pleural based process right upper lobe include what appear to be large pleural based/pleural soft tissue lesions largest measuring up to 6.9 x 4.1 cm. It is unclear whether these are pleural based pulmonary parenchymal lesions or pleural lesions. Slightly more inferiorly smaller nodular pleural and fissural based lesions are present. Definitive evaluation recommended a to exclude malignancy, which is suspected. Heart: Unremarkable. No cardiomegaly. No pericardial effusion. Lymph nodes: Nonspecific moderately prominent mediastinal lymphadenopathy. Bones/joints: Unremarkable. No acute fracture. Soft tissues: Unremarkable. IMPRESSION: 1. Complex pleural based process right upper lobe include what appear to be large pleural based/pleural soft tissue lesions largest measuring up to 6.9 x 4.1 cm. It is unclear whether these are pleural based pulmonary parenchymal lesions or pleural lesions. Slightly more inferiorly smaller nodular pleural and fissural based lesions are present. Definitive evaluation recommended a to exclude malignancy, which is suspected. 2. Nonspecific moderately prominent mediastinal lymphadenopathy FINDINGS: Aorta: No aortic aneurysm. No aortic dissection. Celiac trunk and mesenteric arteries: No occlusion or significant stenosis. Renal arteries: No occlusion or significant stenosis. Liver: Normal. No mass. Gallbladder and bile ducts: Normal. No calcified stones. No ductal dilation. Pancreas: Normal. No ductal dilation. Spleen: Normal. No splenomegaly. Adrenals: Normal. No mass. Kidneys and ureters: Nonobstructing left-sided nephrolithiasis is noted. Stomach and bowel: Portions of the colon appears slightly thick-walled which may reflect artifact related to underdistention versus a nonspecific segmental colitis. Lymph nodes: Unremarkable. No enlarged lymph nodes. Intraperitoneal space: Unremarkable. No free air. No significant fluid collection. Bones/joints: Unremarkable. No acute fracture. No dislocation. Soft tissues: Unremarkable. IMPRESSION: Portions of the colon appears slightly thick-walled which may reflect artifact related to underdistention versus a nonspecific segmental colitis. Thank you for allowing us to participate in the care of your patient. Dictated and Authenticated by: Josh Larose MD 01/27/2022 11:40 PM Eastern Time ([place] & [place]) Medical Records Medical records reviewed: Yes I reviewed the patient's medical records. <Parth Casillas DO - Last Filed: 01/28/22 02:09> 2140 -- 46-year-old male who is a longtime tobacco smoker recently diagnosed with a right upper lobe lung mass with SVC compression scheduled for [facility] for biopsy due to proximity of mass to surrounding vasculature, presents for vomiting and shortness of breath today. He does admit to right-sided chest pain which is no worse than his usual pain for several months. It was reported that he ate a THC candy bar last night. Blood pressure mildly hypertensive, remainder vitals within normal limits. Oxygen saturation 100% on room air. Patient appears restless and anxious, writhing around stretcher and difficulty answering questions due to what appears to be discomfort and restlessness, suspect due to nausea. He is speaking in 2-3 word sentences mostly because he appears anxious and not in severe respiratory distress. His lungs are clear without wheezing or rhonchi. Differential diagnosis includes acute viral illness, THC reaction, electrolyte abnormality, dehydration, pneumonia, etc. We will place an IV, bolus IV fluids, screening labs, IV Zofran and Ativan and obtain a CT chest abdomen and pelvis. 1020 -- patient reassessed and he is still complaining of nausea and right upper chest pain. His vitals are stable. He still appears restless. Patient would likely not be able to lay still for radiology. We will give a dose of Phenergan and Dilaudid. 2300 -- Case endorsed to Dr. Casillas to continue to monitor and follow-up on labs and imaging and final disposition. If patient improves and no other acute findings on work-up, will plan for discharge to home with follow-up with [facility] for outpatient lung mass biopsy. Dr Casillas Patient was signed out to me by my colleague Coco Kramer. Please refer to her HPI, physical exam, assessment and plan. Plan at signout was to reassess after labs and imaging, with a plan for discharge for close outpatient follow-up with Dr. Barker radiology for outpatient lung. Laboratory work-up has returned and is stable. Mildly elevated white count, likely reactive from the vomiting. BUN elevated at 19, creatinine 1.1. Anion gap minimally elevated at 12.7. Lipase normal, troponin normal. Reassessment demonstrates notable improvement compared to assessment signout. Patient has no abdominal pain, no nuchal rigidity, no focal neurologic deficits on exam. Patient states that his stomach pain has resolved, he just feels slightly nauseous still. He was given an initial liter of fluids, and we will give him an additional liter prior to discharge. CT scan shows persistence of lung lesion, and also shows evidence of mild colitis versus underdistention. At this time symptoms appear more clinically consistent currently with a viral gastroenteritis picture. We will give Zofran recommend continued fluids and easy diet at home. However we will provide an antibiotic prescription, and if the patient has return of his abdominal pain and continuation of diarrhea 48 hours it would be prudent to start the antibiotic. Discussed red flags which to return. I have extensively reviewed the treatment plan and discharge instructions with the patient. I have addressed all patient concerns at this time. The patient was made aware of what symptoms to monitor for that would warrant a return to the emergency department. Discussed the plan with the patient, they demonstrate verbal understanding and agreement with our assessment and plan at this time. The documentation in this chart was dictated using [employer] dictation software. Please excuse any dictation errors. FINDINGS: Pulmonary arteries: There is no evidence for PE. Aorta: Unremarkable. No aortic aneurysm. No aortic dissection. Lungs: Unremarkable. No consolidation. No masses. Pleural spaces: Complex pleural based process right upper lobe include what appear to be large pleural based/pleural soft tissue lesions largest measuring up to 6.9 x 4.1 cm. It is unclear whether these are pleural based pulmonary parenchymal lesions or pleural lesions. Slightly more inferiorly smaller nodular pleural and fissural based lesions are present. Definitive evaluation recommended a to exclude malignancy, which is suspected. Heart: Unremarkable. No cardiomegaly. No pericardial effusion. Lymph nodes: Nonspecific moderately prominent mediastinal lymphadenopathy. Bones/joints: Unremarkable. No acute fracture. Soft tissues: Unremarkable. IMPRESSION: 1. Complex pleural based process right upper lobe include what appear to be large pleural based/pleural soft tissue lesions largest measuring up to 6.9 x 4.1 cm. It is unclear whether these are pleural based pulmonary parenchymal lesions or pleural lesions. Slightly more inferiorly smaller nodular pleural and fissural based lesions are present. Definitive evaluation recommended a to exclude malignancy, which is suspected. 2. Nonspecific moderately prominent mediastinal lymphadenopathy FINDINGS: Aorta: No aortic aneurysm. No aortic dissection. Celiac trunk and mesenteric arteries: No occlusion or significant stenosis. Renal arteries: No occlusion or significant stenosis. Liver: Normal. No mass. Gallbladder and bile ducts: Normal. No calcified stones. No ductal dilation. Pancreas: Normal. No ductal dilation. Spleen: Normal. No splenomegaly. Adrenals: Normal. No mass. Kidneys and ureters: Nonobstructing left-sided nephrolithiasis is noted. Stomach and bowel: Portions of the colon appears slightly thick-walled which may reflect artifact related to underdistention versus a nonspecific segmental colitis. Lymph nodes: Unremarkable. No enlarged lymph nodes. Intraperitoneal space: Unremarkable. No free air. No significant fluid collection. Bones/joints: Unremarkable. No acute fracture. No dislocation. Soft tissues: Unremarkable. IMPRESSION: Portions of the colon appears slightly thick-walled which may reflect artifact related to underdistention versus a nonspecific segmental colitis. Thank you for allowing us to participate in the care of your patient. Dictated and Authenticated by: Josh Larose MD 01/27/2022 11:40 PM Eastern Time ([place] & [place]) HPI <Coco Kramer DO - Last Filed: 01/29/22 14:11> General Mode of arrival: wheelchair. Date/Time Provider Initiated Documentation: 01/27/22 21:29. Limitations to Documentation: no limitations. Information obtained by: patient. HPI Narrative: Patient is a 46-year-old male who is a longtime tobacco smoker admitted to the hospital last month for right-sided chest and back pain found to have a newly diagnosed right upper lung mass with SVC compression and findings of metastatic disease who has been referred to [facility] for biopsy presents for right-sided chest pain, lower abdominal pain and vomiting today. Patient states his chest pain feels consistent with pain that he has had for several months and is no worse than usual. Patient states his lower abdominal pain he feels is due to the multiple episodes of vomiting today. He states he has vomited multiple times and is mainly been clear bile. He does admit to shortness of breath. It was also reported that patient ate a THC candy bar last night which may have been the cause of his nausea and vomiting. Patient denies any other alcohol or drug use. He states he does take oxycodone 5 mg 4 times daily for his pain but has not taken it due to vomiting today. He denies any fever or cough worsening Related Data Home Medications Medication Instructions Recorded Confirmed albuterol sulfate 90 mcg/actuation 2 puff INHALATION Q4H PRN 01/09/22 01/27/22 aerosol inhaler cyclobenzaprine 10 mg tablet 10 mg PO HS PRN 01/09/22 01/27/22 Acetaminophen [Tylenol] 325 - 650 mg PO Q4H PRN PRN #0 01/10/22 01/27/22 docusate sodium 100 mg capsule 100 mg PO BID #60 cap 01/10/22 01/27/22 ibuprofen 600 mg tablet 600 mg PO TID PRN #30 tab 01/10/22 01/27/22 nicotine 21 mg/24 hr daily 21 mg TRANSDERMAL DAILY PRN PRN 01/10/22 01/27/22 transdermal patch #30 ea oxycodone 5 mg tablet 5 mg PO Q6H PRN PRN #20 tab MDD 20 01/10/22 01/27/22 mg levofloxacin 750 mg tablet 750 mg PO DAILY #10 tab 01/27/22 Previous Rx's Medication Instructions Recorded Acetaminophen [Tylenol] 325 - 650 mg PO Q4H PRN PRN #0 01/10/22 docusate sodium 100 mg capsule 100 mg PO BID #60 cap 01/10/22 ibuprofen 600 mg tablet 600 mg PO TID PRN #30 tab 01/10/22 nicotine 21 mg/24 hr daily 21 mg TRANSDERMAL DAILY PRN PRN 01/10/22 transdermal patch #30 ea oxycodone 5 mg tablet 5 mg PO Q6H PRN PRN #20 tab MDD 20 01/10/22 mg levofloxacin 750 mg tablet 750 mg PO DAILY #10 tab 01/27/22 Allergies Allergy/AdvReac Type Severity Reaction Status Date / Time No Known Allergies Allergy Unverified 01/27/22 22:23 General Stated Complaint: GenMedical BETHANY: 3 Review of Systems <Coco Kramer DO - Last Filed: 01/29/22 14:11> All systems reviewed & are unremarkable except as noted in HPI and below Constitutional Constitutional: Reports as per HPI, Denies chills, Denies excessive sweating, Denies fatigue and Denies fever(s) Eyes Eyes: Denies blurry vision ENT Ears, Nose, Mouth, and Throat: Denies dizziness, Denies sore throat and Denies throat swelling Cardiovascular Cardiovascular: Reports chest pain and Reports dyspnea Respiratory Respiratory: Denies cough and Reports dyspnea Gastrointestinal Gastrointestinal: Reports abdominal pain, Denies diarrhea and Reports vomiting Genitourinary Genitourinary: Denies hematuria and Denies dysuria Musculoskeletal Musculoskeletal: Denies back pain and Denies numbness Integumentary/Breasts Skin/Breast: Denies lesions and Denies rash Neurologic Neurologic: Denies behavioral changes, Denies confusion, Denies dizziness, Denies localized weakness and Denies numbness Psychiatric Psychiatric: Denies behavioral changes, Denies confusion and Denies depression Endocrine Endocrine: Denies excessive sweating and Denies fatigue Hematologic/Lymphatic Hematologic/Lymphatic: Denies easy bruising and Denies lymphadenopathy Allergic/Immunologic Allergic/Immunologic: Denies throat swelling PFSH <Coco Kramer DO - Last Filed: 01/29/22 14:11> All Active Problems (Updated 01/27/22 @ 23:55 by Parth Casillas DO) Vomiting (Acute) Chronic chest pain (Acute) History of lung cancer (Acute) Superior vena cava compression syndrome (Acute) Metastatic lung cancer (metastasis from lung to other site) (Acute) Anemia (Chronic) Tobacco abuse disorder (Acute) Mass of upper lobe of right lung (Acute) Mediastinal lymphadenopathy (Acute) Medical History (Updated 01/27/22 @ 23:55 by Parth Casillas DO) Cyst removed in throat as child Occlusion of right subclavian vein Social History Smoking/Tobacco Use Status: Current every day Tobacco Type: cigarettes Smoking risk assessment performed?: Yes Alcohol Intake: never Drug use: Never Substance use type: does not use Do you feel safe at home: Yes Do you feel safe in your relationship?: Yes Exam <Coco Kramer DO - Last Filed: 01/29/22 14:11> Const General: cooperative, uncomfortable, ill appearing chronically and other (restless) Orientation: alert and awake HENMT Head: normal to inspection Ears: hearing grossly normal bilaterally, external ears normal and TM's normal bilaterally General nose exam: external nose normal Face and sinus: normal facial exam Mouth: oral mucosae normal Teeth and gingiva: dentition normal Throat: posterior oropharynx normal Eyes General: appearance normal, both eyes and all related structures Eyelids: eyelids normal Pupils: PERRL EOM: EOM intact bilaterally Neck Neck: normal visual inspection Lymphatic: no lymphadenopathy noted Chest Chest: normal inspection of the chest Resp Effort & Inspection: tachypneic Auscultation: clear to auscultation bilaterally Cardio Rate: regular rate Rhythm: regular rhythm GI Inspection: normal to inspection Palpation: soft, not firm, no guarding, no hepatosplenomegaly, no masses and nontender Auscultation: normal bowel sounds Back/Spine/Pelvis Back: no CVA tenderness Skin General skin exam: no rashes or lesions noted Neuro General: patient alert, patient awake and patient oriented x3 Cognition: normal cognition Speech: speech normal Gait: normal gait Motor: muscle tone normal throughout Sensory Exam: no sensory deficits noted Extrem General: normal to inspection and full ROM Psych Appearance: grossly normal Mental Status: mental status grossly normal Speech and Movement: speech and movement normal Affect: normal affect Thought Process: normal Course <Coco Kramer DO - Last Filed: 01/29/22 14:11> Vital Signs Vital signs: Vital Signs Pulse 78 01/27/22 21:33 Respiratory Rate 20 01/27/22 21:33 Blood Pressure 141/87 H 01/27/22 21:33 Pulse Oximetry 100 01/27/22 21:33 Temperature Source Skin 01/27/22 21:33 Pulse 78 01/27/22 21:33 Respiratory Rate 20 01/27/22 21:33 Blood Pressure 141/87 H 01/27/22 21:33 Blood Pressure Position Supine 01/27/22 21:33 Pulse Oximetry 100 01/27/22 21:33 Oxygen Delivery Method Room Air 01/27/22 21:33 Oxygen Flow Rate 0 01/27/22 21:33 Pain Level 8 01/27/22 21:33 Sign Out <Coco Kramer DO - Last Filed: 01/29/22 14:11> Sign Out Data: Sign Out Comment: Follow-up on remainder of labs and imaging and final disposition. If patient feels better, will likely plan for discharge home with plan for follow-up with [facility] for outpatient lung mass biopsy. Last updated by Coco Kramer DO at 01/27/22 22:29
--- NOTE | 2022-01-27 21:45 | RT.EKG_ITS ---
APPROVED REPORT Exam: Resting ECG Reason for Exam: chest/abd pain Patient Location: E HR:55 bpm ECG Measurements Heart Rate 55 AXIS NM 163 P 53 QRSd 92 QRS 65 QT 468 T 62 QTc 448 Conclusion Sinus bradycardia...rate< 60. Sinus. Normal axis. No STEMI. I have reviewed and interpreted ECG and agree with software generated interpretation.
--- NOTE | 2022-01-27 21:45 | DI.CT_ITS ---
Exam(s) CT CHEST PE ABD PELVIS W EXAM: CT CHEST PE ABD PELVIS W CLINICAL HISTORY: vomiting, chest pain, r/o PE, pneumonia. TECHNIQUE: Imaging Protocol: Axial CT angiography was performed with multi-slice acquisition and m ulti-planar and/or 3D reconstructions. CONTRAST MATERIAL: Intravenous: Omnipaque 350 Contrast volume:100 ml Oral: None COMPARISON: CR XR CHEST 2V PA LATERAL from 01/08/[address] ABDOMEN PELVIS W from 01/09/2022 FINDINGS: CHEST: PULMONARY ARTERIES: There are no intra-arterial filling defects to suggest the presence of acute pulm onary emboli. LUNGS: There are multiple large and partially confluent pleural base masses in the right upper lobe, correspond to was seen on recent 01/08/2022 chest x-ray. Also spiculated nodular density in the righ t lower lobe. These signs are suspicious for malignancy, despite absence of overlying rib destructio n.. Similar findings are not seen in the opposite-left lung field. There are no layering pleural ef fusions on either side. No focal findings in trachea and mainstem bronchi MEDIASTINUM: There is bilateral hilar adenopathy. Also mediastinal adenopathy including right paratr acheal and subcarinal adenopathy. CARDIAC: Heart size is normal. There is no pericardial effusion. There is no significant shift of t he interventricular septum.Caliber of the thoracic aorta is within normal limits. OSSEOUS: No significant osseous lesions.. ABDOMEN: There is no ascites. LIVER: There are no focal hepatic lesions nor dilatation of intrahepatic ducts. GALLBLADDER/BILIARY: No obvious gallbladder pathology. CBD is not dilated. PANCREAS: No evidence of pancreatic mass nor dilatation of the pancreatic duct. SPLEEN: Spleen is not enlarged. There are no intrasplenic lesions. Splenic and portal veins are pineda nt. ADRENALS: There are no significant adrenal masses. KIDNEYS:No cysts evident. There is a nonobstructive calculus in left kidney which measures 5 millimet ers.. ABDOMINAL AORTA: Abdominal aorta is not enlarged. Retroaortic left renal vein incidentally noted. LYMPH NODES: There is no retroperitoneal or para-aortic adenopathy. ABDOMINAL WALL/GI: No evidence of significant anterior abdominal wall hernia. No bowel obstruction. PELVIS: LYMPH NODES: There is no intrapelvic nor inguinal adenopathy. GI: No evidence of appendicitis.No evidence of sigmoid diverticulitis. URINARY BLADDER: No calculi nor masses evident REPRODUCTIVE: Prostate gland not enlarged. OSSEOUS: No significant osseous lesions. Advanced disc space narrowing L5-S1 level. No listhesis IMPRESSION: 1. No evidence of acute pulmonary emboli nor pulmonary infarction. 2. However, there are multiple large ominous pleural base massesin the right hemithorax as well as a lobulated slightly spiculated lung nodule in the right lower lobe measuring approximately 2.4 by 1.4 cm. The above finding are suspicious for malignancy. 3. There is bilateral hilar and mediastinal adenopathy also evident. Malignancy workup is recommende d 4. There is a 5 millimeter nonobstructive calculus in left kidney. No other renal findings. 5. No other focal findings in the abdomen and pelvis.. No gross lymphadenopathy nor splenomegaly. N o ascites. Study 1st read by [facility]. RADIATION DOSE DELIVERED: 1,070.77mGy.cm Total DLP DATA REPOSITORY: All CT scans at this facility are submitted to the National Radiology Data Registry (NRDR) Dose Index Registry (DIR) with the [employer] (ACR). RADIATION OPTIMIZATION: All CT scans at this facility use at least one of these dose optimization te chniques: automated exposure control; mA and/or kV adjustment per patient size (includes targeted exa ms where dose is matched to clinical indication); or iterative reconstruction.
[2022-01-27] MEDS: Normal Saline 1,000 ML 1000 ML IV ×2 (21:59→23:54)
[2022-01-27] MEDS: LORazepam 2 MG/ML VIAL 0.5 MG IVP (21:59)
[2022-01-27] MEDS: Ondansetron 4 MG/2 ML VIAL IVP (22:00)
[2022-01-27 22:02] LABS: Abs Immature Grans 0.04 10^3/uL (0.0-0.06); Absolute Basophil Count 0.03 10^3/uL (0.0-0.2); Absolute Eosinophil Count 0.01 10^3/uL (0.0-0.7); Absolute Lymphocyte Count 1.22 10^3/uL (1.2-3.4); Absolute Monocyte Count 0.63 10^3/uL (0.1-0.8); Absolute Neutrophil Count 12.29 10^3/uL (1.2-6.7); Basophils % 0.2; Eosinophils % 0.1; HCT 43.3 % (40.0-50.0); Immature Grans % 0.3; Lymphocytes % 8.6; MCH 30.9 pg (27.0-33.0); MCHC 32.3 % (32.0-36.0); MCV 95.6 fL (80-95); MPV 9.1 fL (8.0-11.0); Monocytes % 4.4; Neutrophils % 86.4; Nucleated RBC 0 %; Platelet Count 426 10^3/uL (130-400); RBC 4.53 10^6/uL (4.36-5.78); RDW 13.3 % (11.8-14.1); RDW-SD 47.4 fL; WBC 14.22 10^3/uL (4.4-10.8)
[2022-01-27 22:18] LABS: ALT 26 U/L (16-63); AST 15 U/L (15-37); Alkaline Phosphatase 137 U/L (46-116); Anion Gap 12.7 mmol/L (3-11); BUN 19 mg/dL (7-18); Bilirubin, Total 0.4 mg/dL (0.2-1.0); CO2 26.3 mmol/L (21.0-32.0); CREATININE 1.1 mg/dL (0.70-1.30); Calcium 10.2 mg/dL (8.5-10.1); Chloride 105 mmol/L (98-107); Glucose 131 mg/dL (74-106); Lipase 57 U/L (73-393); Magnesium 2.5 mg/dL (1.8-2.4); Potassium 4.1 mmol/L (3.5-5.1); Sodium 144 mmol/L (136-145); Total Protein 9.3 g/dL (6.4-8.2); Troponin I < 50 ng/L (<or=60)
[2022-01-27] MEDS: HYDROmorphone 2 MG/ML VIAL 0.5 MG IVP (22:34)
[2022-01-27] MEDS: Ondansetron 4 MG/2 ML VIAL (23:11)
[2022-01-27] MEDS: Omnipaque 350 MG/ML 100 ML BTL IJ (23:17)
--- NOTE | 2022-01-27 23:41 | DI.VRAD_ITS ---
PROCEDURE INFORMATION: Exam: CTA Chest With Contrast Exam date and time: 01/27/2022 9:47 PM Age: 46 years old Clinical indication: Angina; Other: Pneumonia, vomiting TECHNIQUE: Imaging protocol: Computed tomographic angiography of the chest with contrast. 3D rendering (Not supervised by radiologist): MIP and/or 3D reconstructed images were created by the technologist. Contrast material: OMNIPAQUE 350; Contrast volume: 100 ml; Contrast route: INTRAVENOUS (IV); COMPARISON: CT CHEST PE CTA 01/09/2022 12:08 AM FINDINGS: Pulmonary arteries: There is no evidence for PE. Aorta: Unremarkable. No aortic aneurysm. No aortic dissection. Lungs: Unremarkable. No consolidation. No masses. Pleural spaces: Complex pleural based process right upper lobe include what appear to be large pleural based/pleural soft tissue lesions largest measuring up to 6.9 x 4.1 cm. It is unclear whether these are pleural based pulmonary parenchymal lesions or pleural lesions. Slightly more inferiorly smaller nodular pleural and fissural based lesions are present. Definitive evaluation recommended a to exclude malignancy, which is suspected. Heart: Unremarkable. No cardiomegaly. No pericardial effusion. Lymph nodes: Nonspecific moderately prominent mediastinal lymphadenopathy. Bones/joints: Unremarkable. No acute fracture. Soft tissues: Unremarkable. IMPRESSION: 1. Complex pleural based process right upper lobe include what appear to be large pleural based/pleural soft tissue lesions largest measuring up to 6.9 x 4.1 cm. It is unclear whether these are pleural based pulmonary parenchymal lesions or pleural lesions. Slightly more inferiorly smaller nodular pleural and fissural based lesions are present. Definitive evaluation recommended a to exclude malignancy, which is suspected. 2. Nonspecific moderately prominent mediastinal lymphadenopathy. PROCEDURE INFORMATION: Exam: CT Angiography Abdomen With Contrast Exam date and time: 01/27/2022 9:47 PM Age: 46 years old Clinical indication: Angina; Other: Pneumonia, vomiting TECHNIQUE: Imaging protocol: Computed tomographic angiography images of the abdomen with intravenous contrast material. 3D rendering (Not supervised by radiologist): MIP and/or 3D reconstructed images were created by the technologist. Contrast material: OMNIPAQUE 350; Contrast volume: 100 ml; Contrast route: INTRAVENOUS (IV); COMPARISON: CT CHEST PE CTA 01/09/2022 12:08 AM FINDINGS: Aorta: No aortic aneurysm. No aortic dissection. Celiac trunk and mesenteric arteries: No occlusion or significant stenosis. Renal arteries: No occlusion or significant stenosis. Liver: Normal. No mass. Gallbladder and bile ducts: Normal. No calcified stones. No ductal dilation. Pancreas: Normal. No ductal dilation. Spleen: Normal. No splenomegaly. Adrenals: Normal. No mass. Kidneys and ureters: Nonobstructing left-sided nephrolithiasis is noted. Stomach and bowel: Portions of the colon appears slightly thick-walled which may reflect artifact related to underdistention versus a nonspecific segmental colitis. Lymph nodes: Unremarkable. No enlarged lymph nodes. Intraperitoneal space: Unremarkable. No free air. No significant fluid collection. Bones/joints: Unremarkable. No acute fracture. No dislocation. Soft tissues: Unremarkable. IMPRESSION: Portions of the colon appears slightly thick-walled which may reflect artifact related to underdistention versus a nonspecific segmental colitis. Dictated and Authenticated by: Josh Larose MD. Ordering:SOFY Sepulveda MD
[2022-01-28 00:56] VITALS: BP 133/70; PULSE 67; RESP 14; TEMP 36.6; O2SAT 96
[2022-01-28] MEDS: Ondansetron O.D.T. 4 MG TABEF, 3 TABS/BTL PO (00:57)
== END 2022-01-28 01:03 | disposition home or self-care (01) ==
PROVIDERS: Physician Assistant; Emergency Provider Student in an Organized Health Care Education/Training Program; PCP Nurse Practitioner Family
DX: R11.10 Vomiting, unspecified (principal); R07.9 Chest pain, unspecified; C34.11 Malignant neoplasm of upper lobe, right bronchus or lung
CPT/HCPCS: 36415; 71275; 74177; 80053; 83690; 93005; 96361; 96365; 96375; 99285; 83735; 84484; 85025; 93010; 99284; J2060; J2405; J3490

== ENCOUNTER 2022-04-29 13:59 | Inpatient (IN) | payer OTHER, SELFPAY ==
--- NOTE | 2022-04-29 14:08 | W.PM.HP.N ---
Date of service: 04/29/22 Assessment and Plan Assessment and plan (1) DNI (do not intubate): Status: Acute Assessment and plan: Filled out and signed new COLST form. Copy sent to hospice. IF he goes home, this will go with him. Had agreed to change his code status from FULL to DNR/DNI prior to this admission, per DPOA (2) DNR (do not resuscitate): Status: Acute (3) Hospice care patient: Status: Acute Assessment and plan: Admitted for symptom management. Unlikely that he will return home, given his current condition. Appears to have only hours maybe days to live. If we are unable to keep his symptoms controlled, will initiate palliative sedation orders. I have spoke to Dr Dela Cruz. She is aware of this. Portia Zapien, FELLED SEAM OPERATOR CHAINSTITCH to see Yazan tomorrow or routine hospice symptom management care; if he needs palliative sedation, Dr Dela Cruz will step in, most graciously. (4) Dying care: Status: Acute Assessment and plan: Hospital pomology teacher Karley Bey present during admission. Nursing and WHEEL AND CASTER REPAIRER to try to bathe him. Will likely need to cut off his pants, due to swelling in his LE. No evidence of agitation during his admission. Appeared to be calmed by being in hospital. I spoke directly to him about dying, asked if he thought he was. He said he knew he was. Will keep his pain controlled with hydromorphone at 4 mg /hr IV with titration up as needed. On high dose titration. Has lorazepam ordered prn, IV or SC. Has haldol as needed. Scopolamine patch and other meds for secretions orderd. Will not worry about constipation as he has normal BS and is not eating much. Will see if he will accept a marie cath for his incontinence. Discussed post- plans with Shantal. He wants to be cremated, per her report. No facility for cremation chosen yet. Yazan has avoided discussing his illness or with anyone, including hospice BIT GATHERER and FELLED SEAM OPERATOR CHAINSTITCH, Portia Zapien. (5) Brain lesion: Status: Acute Assessment and plan: Seen on brain MRI on March 10, 2022. Suspect that this cancer is also rapidly increasing in size, as his palpable LN are. No headaches. Does have protuberant left eye and dysconjugate gaze. May be contributing to some of his confusion at home. Was able to speak in limited conversation since admission. (6) Cancer related pain: Status: Acute Assessment and plan: Was on 8 mg/hr of hydromorphone at home. Dropping back dose to 4 mg/hr and if needed will increase by 2 mg q hour until comfortable. Has prn morphine ordered, and prn fentanyl patches, out of concern that he have options for pain control other than his hydromorphone pump. Note that Yazan had been on methadone long-term as an outpatient prior to his coming on hospice, or so I believe. (7) Bone metastases: Status: Acute Assessment and plan: Quite painful for him. (8) Metastatic lung cancer (metastasis from lung to other site): Status: Acute (9) Mass of upper lobe of right lung: Status: Acute (10) Mediastinal lymphadenopathy: Status: Acute Assessment and plan: In addition, Yazan has LAD of neck, axilla, chest. Cancer is aggressive and widespread. (11) Self neglect: Status: Acute Assessment and plan: Not able to care for himself. Does not want daughter or ex- to do his personal care. (12) Delirium: Status: Acute Assessment and plan: Prominent at home prior to his admission. [facility] reported that he was cooperative and pleasant during his transport, though he did have a dose of morphine and lorazepam prior to transport. (13) Agitation: Status: Acute Assessment and plan: Meds are ordered. IF we cannot control his agitaion with our usual medications, will use palliative sedation. This was discussed theoretically with Shantal. Will see how Yazan does overnight. Portia Zapien will decide whether he needs further sedating treatments. (14) Hypoxia: Status: Acute Assessment and plan: Up to 5L/min. May be a retainer. No ABGs on record. Long history of smoking. Given his terminal state, not to worry about hypercapnea at this time. History of Present Illness History of Present Illness Chief Complaint: increased pain, confusion, agitation in pt with lung cancer, mets to brain Narrative: Yazan's family--his daughter, Debra, age 17 and his ex-/DPOA Shantal--called hospice this morning to report that Yazan had quickly and dramatically declined over the previous 24-48 hrs. He was confused. He was agitated. He had not bathed or changed his clothes in almost 3 weeks. He was incontinent. He took his hydromorphone pump apart and broke the cassette. He was delirious. His oxygen saturation was in the low 80s. They increased his oxygen up to 5 L/min, but he still seemed to have a hard time breathing. His adenopathy, in his neck and axillae, had visibly increased. He had a swelling over his left eye, but no bruising. They thought maybe it was another sign of his cancer. They were exhausted and said they could not care for Yazan in this state. They asked if he could be transferred to the hospital to get his symptoms under control. Review of Systems Unobtainable due to mental status PFS All Active Problems (Updated 04/29/22 @ 21:17 by Rachael Bauer MD) Hypoxia (Acute) Agitation (Acute) Delirium (Acute) Self neglect (Acute) Dying care (Acute) DNI (do not intubate) (Acute) DNR (do not resuscitate) (Acute) Hospice care patient (Acute) Brain lesion (Acute) Bone metastases (Acute) Cancer related pain (Acute) Superior vena cava compression syndrome (Acute) Metastatic lung cancer (metastasis from lung to other site) (Acute) Anemia (Chronic) Tobacco abuse disorder (Acute) Mass of upper lobe of right lung (Acute) Mediastinal lymphadenopathy (Acute) Medical History Atrial fibrillation with RVR Cyst removed in throat as child Occlusion of right subclavian vein Palliative care patient Surgical History Hx of heart artery stent SVC stent placement 03/17/22 Social History (Updated 04/29/22 @ 21:00 by Rachael Bauer MD) Smoking/Tobacco Use Status: Current every day Tobacco Type: cigarettes Quit status: not considering quitting Smoking risk assessment performed?: Yes Reason tobacco screening was not done: limited life expectancy Alcohol Intake: never Drug use: Current Sobriety Substance use type: does not use and former substance user Counseling provided: support program Caregiver/Support person: Yes Household members: children Housing: house Number of Children: 1 Education Level: high school Do you need help understanding health information?: Always Current gender identity: male What is your relationship status?: How often do you talk on the phone with friends or family?: twice per week How often do you get together with friends or relatives?: twice per week Panel score (0-1 are the most socially isolated patients): 1 What type of physical activity do you participate in: none Special shagufta needs: No Agree to transfusion: No Seatbelt use: sometimes Do you feel safe at home: Yes Do you feel safe in your relationship?: Yes Additional Social history: Was living at home with his 17 yo daughter, who's been caring for her father for the past few months. As she is a minor, her mother, Yazan's ex-, Shantal, had to sign on as DPOA/primary caregiver. His care needs have expanded beyond what the two of them can provide. They were exhausted and frightened by his decline. He had told Shantal that he wanted to in the hospital. He didn't want to in Debra's house, (where she has lived with her father.) Meds Allergies and Home Medications Allergies Allergy/AdvReac Type Severity Reaction Status Date / Time No Known Allergies Allergy Unverified 03/21/22 08:46 Home Medications Medication Instructions Recorded Confirmed Type albuterol sulfate 90 mcg/actuation 2 puff inhalation Q4H PRN 01/09/22 04/05/22 History aerosol inhaler ibuprofen 600 mg tablet 600 mg PO TID PRN pain #30 tabs 01/10/22 04/05/22 Rx acetaminophen 500 mg tablet 1,000 mg PO Q6H PRN 03/20/22 04/05/22 History apixaban 5 mg tablet 5 mg PO BID 03/20/22 04/05/22 History clopidogrel 75 mg tablet (Plavix) 75 mg PO DAILY 03/20/22 04/05/22 History dexamethasone 4 mg tablet 4 mg PO BID 03/20/22 04/05/22 History gabapentin 400 mg capsule 1,200 mg PO TID 03/20/22 04/05/22 History metoprolol succinate 100 mg 100 mg PO DAILY 03/20/22 04/05/22 History tablet,extended release 24 hr pantoprazole 40 mg tablet,delayed 40 mg PO DAILY 03/20/22 04/05/22 History release polyethylene glycol 3350 17 gram 17 g PO DAILY 03/20/22 04/05/22 History oral powder packet (Miralax) sennosides 8.6 mg tablet (senna) 17.2 mg PO BID 03/20/22 04/05/22 History docusate sodium 100 mg capsule 100 mg PO BID #60 caps 03/26/22 04/05/22 Rx methadone 10 mg tablet 10 - 15 mg PO TID #90 tabs 04/05/22 04/05/22 Rx furosemide 20 mg tablet 20 mg PO DAILY PRN edema #14 tabs 04/07/22 Rx lorazepam 1 mg tablet 1 mg PO Q4H PRN PRN anxiety #6 tabs 04/07/22 Rx morphine concentrate 100 mg/5 mL 5 - 20 mg (0.25 - 1 mL) PO Q1-4H 04/07/22 Rx (20 mg/mL) oral solution PRN pain #30 mL oxycodone 15 mg tablet 45 mg PO Q3H PRN PRN cancer 04/22/22 Rx related pain #90 tabs hydromorphone (PF) 10 mg/mL 8 - 12 mg (0.8 - 1.2 mL) subcut 04/27/22 Rx injection solution Q1H pain #100 mL Allergy/Medication Comments:: took apart his pump and broke the hydromorphone cassette morning of admission Exam Narrative Exam Narrative: Terminally ill appearing man, disheveled, with strong odor of urine and sweat, cooperative and responsive with answers to questions using 2-3 word sentences. Dyspneic at rest. Oriented to self and place, not time. Can name Debra and Shantal as his family and caregivers. Not delirious upon admission. Eyes: Left eye protuberant, bulging, anicteric HEENT: no rhinnorhea, dry MM, hearing grossly intact, no oral lesions Neck: Multiple large fixed LNs bilaterally Lungs: rhonchi, wheeze and crackles, increased WOB, + use of accessory muscles CV: irregularly irregular and tachycardic to the 120s-130s by auscultation Abd: soft, NT, ND, + bs wnl ext: bilateral swelling of both LE, pants tight due to swelling : not examined Neuro: oriented x 2. Reviewed COLST with him; he was able to express his wishes to allow a natural . (Shantal confirmed that he had filled out COLST at home indicating DNR.DNI). + myoclonus + drowsiness psych: no agitation or anxiety noted Skin: hands and feet dirty, needing washing, rash on bottom of his feet due to excess moisture
[2022-04-29] MEDS: LORazepam 2 MG/ML VIAL IV/SC ×2 (16:32→23:59)
[2022-04-29] MEDS: Scopolamine 1 MG/3 DAYS PATCH TD (17:38)
[2022-04-29 21:08] LABS: Source Nasal/Nares
[2022-04-30 00:14] LABS: COVID-19 PCR Negative (Negative)
[2022-04-30] MEDS: LORazepam 2 MG/ML VIAL IV/SC ×7 (07:31→16:08)
--- NOTE | 2022-04-30 11:45 | CHAPLAIN ---
Yazan was admitted yesterday for hospice symptom management. He was talking with RONN Barth, and Dr. Bauer and myself. He had some sips of apple juice. His daughter arrived later with a friend. Some of the family are connected to the [place] [employer] and Rev. Grady Larkin has been here today to visit with Yazan and family members. I will continue to visit.
[2022-04-30] MEDS: Normal Saline Flush 10 ML SYR IVP ×3 (11:52→16:47)
[2022-04-30] MEDS: MORPHine 4 MG/ML SYR IV/SC (11:52)
[2022-04-30] MEDS: Glycopyrrolate 1 MG TAB PO (12:13)
--- NOTE | 2022-04-30 15:07 | PGE_ITS ---
Date of Service Date of service: 04/30/22 Time of Service: 14:35 Assessment and Plan Assessment and plan (1) DNI (do not intubate): Status: Acute Assessment and plan: DNR/DNI, COLST on file. (2) DNR (do not resuscitate): Status: Acute (3) Dying care: Status: Acute (4) Brain lesion: Status: Acute Assessment and plan: (5) Cancer related pain: Status: Acute Assessment and plan: He was on hydromorphone CADD 8mg/hr at home, decreased to 4 mg/hr upon admission due to concern that he could possibly be having a medication reaction causing delirium. He was restless and uncomfortable and has had his drip titrated multiple times. He is now at hydromorphone 12 mg/hr and appears comfortable and relaxed. Continue to titrate as needed. (6) Bone metastases: Status: Acute (7) Metastatic lung cancer (metastasis from lung to other site): Status: Acute Assessment and plan: He has scopolamine patch ordered for secretions. Add robinul IV PRN. (8) Mass of upper lobe of right lung: Status: Acute (9) Mediastinal lymphadenopathy: Status: Acute Assessment and plan: In addition, Yazan has LAD of neck, axilla, chest. Cancer is aggressive and widespread. (10) Self neglect: Status: Acute Assessment and plan: Not able to care for himself. Does not want daughter or ex- to do his personal care. (11) Delirium: Status: Acute Assessment and plan: Prior to arrival at [facility]. (12) Agitation: Status: Acute Assessment and plan: Has been restless, lorazepam increased to 1-2 mg q1h PRN. Haldol also ordered. (13) Hypoxia: Status: Acute Assessment and plan: Wearing oxygen at this time. Continue only for comfort. If he appears uncomfortable with nasal cannula, may remove. (14) Hospice care patient: Status: Acute Assessment and plan: He remains on Hospice symptom management for dying care. He was not comfortable for most of the day prior to this visit but now appears to be comfortable. Continue to titrate hydromorphone as needed for comfort. Continue lorazepam PRN for comfort. His life expectancy is measured in hours to days. Subjective Subjective Interval history since last seen: Yazan was seen for Hospice Symptom Management. His niece was present for the visit. Nursing reports that he was restless and appeared uncomfortable throughout the day. His hydromorphone pump has been increased several times. He is currently at 12 mg/hr. He was at 8 mg/hr at home and the rate was decreased upon admission due to concerns that his delirium could possibly be a medication reaction. He has been receiving lorazepam IV for restlessness. Dose increased to Lorazepam 1-2 mg q1h PRN. At the time of the visit, he appears comfortable. His respirations appear even and unlabored. His face is relaxed. His niece verbalizes that he appears relaxed now. He has had multiple family members visit him. Nursing requests LINDEN tamez. Exam Narrative Exam Narrative: General: middle aged man, laying in bed, unresponsive. Does not appear to be in acute dsitress. HEENT: ?Left eye protuberant, mucous membranes dry. Neck: obvious cervical LAD. Cardiovascular: tachycardic. Respiratory: respirations appear even, no apnea. GI: abdomen soft, +BS, nondistended. Extremities: edema to BLEs. Objective Laboratory Results - last 24 hr 04/29/22 20:45 COVID-19 Source Nasal/Nares SARS-CoV-2 (PCR) Negative
--- NOTE | 2022-04-30 15:11 | PDOC.CMPRO ---
- If Service Date Differs Date of service: 04/30/22 Time of Service: 15:11 Care Management Progress Note S/O: Yazan is admitted for symptom management. He is being followed by Hospice. [place] services offered. COLST form on file, code status is DNR/DNI and his DPOA is Shantal Sprague. Portia from Hospice is here assessing pt now. A: 46 year old male with Metastatic lung cancer admitted to [facility] on 04/29/22 for symptom management. P: Per chart review: Hospice provider discussed post- plans with Shantal. He wants to be cremated, per her report. No facility for cremation chosen yet. Yazan has avoided discussing his illness or with anyone, including hospice CLEARING HOUSE CLERK and BILINGUAL HR GENERALIST, Portia Zapien.
[2022-04-30] MEDS: Glycopyrrolate 0.2 MG/1 ML VIAL IVP (16:47)
--- NOTE | 2022-04-30 22:47 | NUR.NOTE ---
Nursing Note: Pt sister in law in room at 2145, discussion about who is staying overnight and Pt comfort at this time. Pt appeared to be comfortable and without respiratory distress. Requested favorite music from sister in law and brought in ortega with pt's favorite music on. placed Ortega near bed and sister in law acknowledged content with music choice. Sister in law called out about 15 min later and informed staff she thought Pt had passed. This nurse requested second nurse to verify time of . Hydromorphone gtt stopped and removed from room. Charge nurse and nursing blending supervisor aware. Sister in law informing rest of family at this time.
--- NOTE | 2022-05-01 08:06 | W.PM.DDS ---
Date of service: 04/30/22 Time of Service: 22:09 Discharge Sum: Prov Provider Consults: 04/29/22 13:56 Natural Resource Specialist Consult [CONS] Routine Consultation Status:: Follow-up needed Clarification:: Manage/follow per spec. Reason for consult:: patient transitioning to actively dying Discharge Sum: Diag Contributing Factors (1) DNI (do not intubate): (2) DNR (do not resuscitate): (3) Dying care: (4) Brain lesion: (5) Cancer related pain: (6) Bone metastases: (7) Metastatic lung cancer (metastasis from lung to other site): (8) Mass of upper lobe of right lung: (9) Mediastinal lymphadenopathy: (10) Self neglect: (11) Delirium: (12) Agitation: (13) Hypoxia: (14) Hospice care patient: Discharge Sum: Summary Date and Time Admission Date: 04/29/2206/07/22 13:59 Date of : 04/30/22 Time of : 22:04
== END 2022-04-30 22:04 | disposition expired | DRG 948 ==
PROVIDERS: Admitting Provider Family Medicine; PCP Family Medicine; Visit Provider Family Medicine
DX: G89.3 Neoplasm related pain (acute) (chronic) (principal); C79.51 Secondary malignant neoplasm of bone; C34.11 Malignant neoplasm of upper lobe, right bronchus or lung; C77.3 Secondary and unspecified malignant neoplasm of axilla and upper limb lymph nodes; C77.0 Secondary and unspecified malignant neoplasm of lymph nodes of head, face and neck; C77.1 Secondary and unspecified malignant neoplasm of intrathoracic lymph nodes; C79.31 Secondary malignant neoplasm of brain; F05 Delirium due to known physiological condition; I87.1 Compression of vein; Z51.5 Encounter for palliative care; R09.02 Hypoxemia; R45.1 Restlessness and agitation
CPT/HCPCS: 87635; J2060; J2270